=== PATIENT | male | born 1940 | race Caucasian/White ===

== ENCOUNTER → 2018-03-18 09:00 | Outpatient (CLI) | payer MEDICARE, SELFPAY ==
[2018-03-18 09:52] LABS: Add Manual Diff / Slide Review NO; Basophils Percent Auto 0.7 % (0-2); Eosinophils Percent Auto 1.3 % (2-4); Hemoglobin 15.2 g/dL (13.5-17.5); Lymphocytes Percent Auto 15.4 % (25-40); Mean Corpuscular HGB Conc 34.5 % (30-36); Mean Corpuscular Hemoglobin 32.7 PG (26-34); Monocytes Percent Auto 11.9 % (3-14); Neutrophils Absolute Auto 3000 /uL (3000-5900); Neutrophils Percent Auto 70.7 % (50-75); Platelet Count 203 X10^3/uL (150-400); Red Blood Cell Count 4.64 X10^6/uL (4.5-5.9); Red Cell Distribution Width 13.2 % (11.6-14.8); White Blood Cell Count 4.3 X10^3/uL (4.5-11.0)
[2018-03-18 10:20] LABS: Alanine Aminotransferase 19 IU/L (21-72); Albumin Globulin Ratio 1.5 (1.0-2.8); Alkaline Phosphatase 51 U/L (38-126); Amylase 67 U/L (30-110); Aspartate Aminotransferase 27 IU/L (17-59); BUN Creatinine Ratio 21.1 (6-22); Bilirubin Total 0.8 mg/dL (0.2-1.3); Blood Urea Nitrogen 19 mg/dL (9-20); Calcium 8.9 mg/dL (8.4-10.2); Carbon Dioxide 30 mmol/L (22-32); Chloride 104 mmol/L (98-107); Estimated Glomerular Filt Rate > 60.0 mL/min (>60); Globulin 2.6 g/dL (1.7-4.1); Glucose 95 mg/dL (80-110); HEMOLYSIS < 15 (0-50); Lipase 66 U/L (23-300); Potassium 4.7 mmol/L (3.4-5.1); Sodium 141 mmol/L (137-145); Total Protein 6.6 g/dL (6.3-8.2)
== END ==
PROVIDERS: PCP Family Medicine
DX: R10.13 Epigastric pain (principal)
CPT/HCPCS: 36415; 80053; 82150; 83013; 83690; 85025

== ENCOUNTER 2018-11-03 08:24 | Emergency (ER) | payer MEDICARE, SELFPAY ==
[2018-11-03 08:38] VITALS: BP 126/92; PULSE 86; RESP 16; TEMP 36.6; O2SAT 95
--- NOTE | 2018-11-03 08:43 | ED_ITS ---
HPI - SOB/Dyspnea General Chief Complaint: Shortness of Breath/Dyspnea Stated Complaint: Sick for one week Time Seen by Provider: 11/03/18 08:43 Source: patient Mode of arrival: ambulatory Limitations: no limitations History of Present Illness Patient is a 78-year-old male who was seen in the walk-in clinic a couple days ago was diagnosed with a ?viral infection? he states he was seen for sinus congestion and a cough. He states since then he has been doing [id number] decongestants which has helped his congestion but the mdkl-bnc-[id number] cough medication has not helped any of his symptoms. he states he is just not getting any better. Related Data Home Medications Medication Instructions Recorded Confirmed ascorbic acid (vitamin C) PO 03/18/18 10/30/18 cyanocobalamin (vitamin B-12) PO 03/18/18 10/30/18 aspirin 81 mg tablet,delayed 81 mg PO DAILY 06/18/18 11/03/18 release Previous Rx's Medication Instructions Recorded omeprazole 20 mg tablet,delayed 20 mg PO DAILY #90 tab 06/18/18 release azithromycin See Rx Instructions .ROUTE 11/03/18 .COMPLEX #6 tab benzonatate [Tessalon Perles] 100 mg PO BID-TID PRN #20 cap 11/03/18 Allergies Allergy/AdvReac Type Severity Reaction Status Date / Time No Known Drug Allergies Allergy Verified 11/03/18 08:49 Review of Systems Constitutional Denies fever(s) and Denies headache(s) ENT Ears, Nose, Mouth, and Throat: Denies headache(s) Cardiovascular Denies chest pain, Denies dyspnea and Denies dyspnea on exertion Respiratory Denies change in phlegm color, Reports cough, Denies hemoptysis, Reports pain with cough, Denies dyspnea and Denies dyspnea on exertion Gastrointestinal Gastrointestinal: Denies abdominal pain, Denies nausea and Denies vomiting Musculoskeletal Denies myalgias and Denies arthralgias Integumentary/Breasts Denies rash Neurologic Denies headache(s) Hematologic/Lymphatic Denies easy bleeding and Denies easy bruising [facility] Medical History (Updated 11/03/18 @ 09:09 by Cisco Paz DO) Gastroesophageal reflux disease (Acute) Social History Smoking Status: Never smoker Social History Smoking Status: Never smoker Exam Initial Vital Signs Initial Vital Signs: Vital Signs Temperature 97.9 F 11/03/18 08:38 Pulse Rate 86 11/03/18 08:38 Respiratory Rate 16 11/03/18 08:38 Blood Pressure 126/92 H 11/03/18 08:38 Pulse Oximetry 95 11/03/18 08:38 Const General: cooperative, comfortable, well developed, well groomed and No acute distress Orientation: alert, awake and oriented x3 HENMT Head: normal to inspection and normocephalic Ears: TM's normal bilaterally Mouth: oral mucosae normal Throat: posterior oropharynx normal Resp Effort & Inspection: normal respiratory effort Auscultation: rhonchi Cardio Rate: regular rate Skin Lesions: no lesions Rashes: no rashes Neuro General: alert, awake and oriented x3 Cognition: normal cognition Speech: speech normal Extrem General: normal to inspection and capillary refill normal Psych Appearance: grossly normal and well kempt Course Orders Ordered: ED Orders 11/03/18 08:44 XR chest 2V Stat Vital Signs - 8 hr 11/03/18 08:38 Temperature 97.9 F Pulse Rate 86 Respiratory Rate 16 Blood Pressure 126/92 H Pulse Oximetry 95 MDM - SOB/Dyspnea Imaging Data Chest x-ray: Radiologist's impression: PROCEDURE: XR CHEST 2V INDICATIONS: Cough for 1 week with coarse breath sounds TECHNIQUE: 2 views of the chest were acquired. COMPARISON: None. FINDINGS: Surgical changes and devices: None. Lungs and pleura: Lungs are abnormal with mild patchy pneumonitis pattern consistent with bilateral mild pneumonia. No pleural effusions or pneumothorax. Mediastinum: Mediastinal contours are normal except for presence of a moderate- sized hilar hernia behind heart containing gas. Heart size is normal. Bones and chest wall: No suspicious bony abnormalities. Soft tissues appear unremarkable. IMPRESSION: Mild patchy pneumonia bilaterally, no effusion found. Moderate- sized hiatal hernia behind the heart. Followup chest plain films are recommended to confirm resolution of the pneumonia pattern after symptoms have improved. Dictated by: William Coronado M.D. on 11/03/2018 at 8:58 Approved by: William Coronado M.D. on 11/03/2018 at 9:00 [facility] Narrative Medical decision making narrative: Chest x-ray shows pneumonia. Patient is not hypoxic, not tachypneic, not tachycardic, not febrile, he does have coarse tanya th sounds bilateral will treat with antibiotics. Will also send home with a prescription for Tessalon Perles. Patient was told that his cough may persist afterwards. He was instructed to follow up with his primary doctor. We also discussed decongestants. He was given return precautions. He expressed understanding and agreement with plan. Discharge Plan Departure Patient Disposition: Home Clinical Impression: Pneumonia Qualifiers: Pneumonia type: due to unspecified organism Laterality: unspecified laterality Lung location: unspecified part of lung Qualified Code(s): J18.9 - Pneumonia, unspecified organism Instructions: DI for Pneumonia -- Adult Activity Restrictions/Additional Instructions: I do recommend that you start on a decongestant such as Claritin or Rosemary or Zyrtec. He can buy these [id number]. You can buy the generic version of these medications. Start taking the antibiotics as directed. Call your primary care doctor for a follow-up. Return to the emergency department for any new or worsening symptoms Prescriptions: New azithromycin 250 mg tablet See Rx Instructions .ROUTE .COMPLEX Qty: 6 RF: 0 benzonatate [Tessalon Perles] 100 mg capsule 100 mg PO BID-TID PRN (Reason: cough) Qty: 20 RF: 0 No Action ascorbic acid (vitamin C) PO RF: 0 cyanocobalamin (vitamin B-12) PO RF: 0 aspirin [Adult Aspirin Regimen] 81 mg tablet,delayed release (DR/EC) 81 mg PO DAILY RF: 0 omeprazole 20 mg tablet,delayed release (DR/EC) 20 mg PO DAILY Qty: 90 RF: 0 Referrals: Cinda Garcia DO [Primary Care Provider] -
[2018-11-03 09:14] VITALS: BP 115/70; PULSE 83; RESP 20; O2SAT 92
== END 2018-11-03 09:15 | disposition home or self-care (01) ==
PROVIDERS: Emergency Provider Emergency Medicine; PCP Family Medicine
DX: J18.9 Pneumonia, unspecified organism (principal)
CPT/HCPCS: 71046; 99282; 99283

== ENCOUNTER → 2018-12-03 11:27 | Outpatient (CLI) | payer MEDICARE, SELFPAY ==
--- NOTE | 2018-12-03 | DI.RAD.S_ITS ---
PROCEDURE: XR CHEST 2V INDICATIONS: PNEUMONIA/COUGH TECHNIQUE: 2 views of the chest were acquired. COMPARISON: , CR, XR CHEST 2V, 11/03/2018, 8:47. FINDINGS: Surgical changes and devices: None. Lungs and pleura: Improved aeration of the right lung base since 11/03/18. No pleural effusions or pneumothorax. Mediastinum: Mediastinal contours are normal. Heart size is normal. Incidental hiatal hernia as before Bones and chest wall: No suspicious bony abnormalities. Soft tissues appear unremarkable. IMPRESSION: Improved aeration of the right lung base since the prior study, in keeping with resolved pneumonia. No new consolidation. Dictated by: Zeyad Greenberg M.D. on 12/03/2018 at 12:44 Approved by: Zeyad Greenberg M.D. on 12/03/2018 at 12:48
== END ==
PROVIDERS: PCP Family Medicine; Visit Provider Family Medicine
DX: J18.9 Pneumonia, unspecified organism (principal); R05 Cough
CPT/HCPCS: 71046

== ENCOUNTER 2020-06-17 00:29 | Observation (INO) | payer MEDICARE, SELFPAY ==
[2020-06-17] VITALS (30 sets, daily range): BP systolic 102–155; BP diastolic 63–87; PULSE 74–88; RESP 13–22; TEMP 36.6–37; O2SAT 93–99; BMI 23.0
--- NOTE | 2020-06-17 00:32 | DI.RAD.S_ITS ---
PROCEDURE: XR CHEST 1V INDICATIONS: chest pain TECHNIQUE: One view of the chest was acquired. COMPARISON: [facility], CR, XR CHEST 2V, 12/03/2018, 11:40. FINDINGS: Surgical changes and devices: None. Lungs and pleura: Lungs are clear. No pleural effusions or pneumothorax. Mediastinum: Mediastinal contours appear normal. Heart size is normal. Retrocardiac hiatal hernia. Bones and chest wall: No suspicious bony lesions. Overlying soft tissues appear unremarkable. IMPRESSION: No acute cardiopulmonary disease process. Dictated by: Virgen Lucero MD, PhD on 06/17/2020 at 9:20 Approved by: Virgen Lucero MD, PhD on 06/17/2020 at 9:20
[2020-06-17 00:46] LABS: Add Manual Diff / Slide Review NO; Basophils Absolute Auto 0 /uL (0-100); Basophils Percent Auto 0.9 % (0-2); Eosinophils Absolute Auto 100 /uL (0-450); Eosinophils Percent Auto 2.7 % (2-4); Hematocrit 43.9 % (41-53); Hemoglobin 14.9 g/dL (13.5-17.5); Lymphocytes Absolute Auto 1100 /uL (1100-4500); Lymphocytes Percent Auto 22.7 % (25-40); Mean Corpuscular HGB Conc 33.8 % (30-36); Mean Corpuscular Hemoglobin 32.5 PG (26-34); Mean Corpuscular Volume 96.1 fL (80-100); Monocytes Absolute Auto 700 /uL (0-900); Monocytes Percent Auto 14.8 % (3-14); Neutrophils Absolute Auto 2800 /uL (1500-7000); Neutrophils Percent Auto 58.9 % (50-75); Platelet Count 197 X10^3/uL (150-400); Red Blood Cell Count 4.57 X10^6/uL (4.5-5.9); Red Cell Distribution Width 13.3 % (11.6-14.8); White Blood Cell Count 4.8 X10^3/uL (4.5-11.0)
[2020-06-17 00:57] LABS: Alanine Aminotransferase 20 IU/L (<50); Albumin Globulin Ratio 1.3 (1.0-2.8); Alkaline Phosphatase 54 U/L (38-126); Aspartate Aminotransferase 31 IU/L (17-59); BUN Creatinine Ratio 21.7 (6-22); Bilirubin Total 0.6 mg/dL (0.2-1.3); Blood Urea Nitrogen 18 mg/dL (9-20); Calcium 8.9 mg/dL (8.4-10.2); Carbon Dioxide 31 mmol/L (22-32); Chloride 107 mmol/L (98-107); Creatine Kinase 85 U/L (55-170); Estimated Glomerular Filt Rate > 60.0 mL/min (>60); Glucose 102 mg/dL (80-110); HEMOLYSIS < 15 (0-50); Lipase 89 U/L (23-300); PTT Partial Thromboplastin Tim 33 SECONDS (26.4-36.2); Potassium 3.6 mmol/L (3.4-5.1); Sodium 142 mmol/L (137-145)
[2020-06-17 01:08] LABS: Troponin I < 0.012 ng/mL (0.01-0.034)
--- NOTE | 2020-06-17 01:11 | ED.CHESTPAIN ---
HPI - Chest Pain General Chief Complaint: Chest Pain Stated Complaint: chest pain Time Seen by Provider: 06/17/20 00:30 Source: patient Mode of arrival: Ambulatory Limitations: no limitations History of Present Illness HPI narrative: 80-year-old male never smoker with a questionable history of a prior DVT, pulmonary embolism and warfarin use and GERD presents with a chief complaint of anterior chest pressure with radiation into his jaw that started while at rest at midnight. By his arrival the pressure and heaviness as well as radiation to his jaw had largely improved, however he now states that there is still some lingering discomfort just left of his sternum the seems to be worse with a deep breath. He denies associated symptoms such as dizziness, weakness or lightheadedness. He denies shortness of breath nor nausea or vomiting. He denies unexplained diaphoresis. He denies recent travel or injury. He states that he is very active and works out nearly every day and denies any exercise intolerance or fatigue. He denies any exertional component to his symptoms today. MD complaint: chest pain Onset (ago): hour(s) Duration: improved Onset: during rest Pain location: substernal and left chest Severity: moderate Quality: aching and heaviness Pain radiation: jaw/teeth Exacerbating factors: inspiration Treatments prior to arrival chest pain: none Related Data Home Medications Medication Instructions Recorded Confirmed ascorbic acid (vitamin C) 1,000 mg PO QAM 03/18/18 06/17/20 aspirin 81 mg tablet,delayed 81 mg PO DAILY 06/18/18 06/17/20 release Probiotic 1 caplet PO QAM 06/17/20 06/17/20 astaxanthin 12 mg PO QAM 06/17/20 06/17/20 omega [id number]-qnf-fish oil [Fish Oil] 1 cap PO DAILY 06/17/20 06/17/20 Allergies Allergy/AdvReac Type Severity Reaction Status Date / Time No Known Drug Allergies Allergy Verified 11/07/18 15:31 Review of Systems Constitutional Constitutional: Denies chills, Denies fatigue, Denies fever(s), Denies frequent falls, Denies lethargy and Denies weakness Eyes Eyes: Denies change in vision, Denies eye discharge, Denies irritation and Denies loss of vision ENT Ears, Nose, Mouth, and Throat: Denies change in voice, Denies dizziness, Denies neck pain, Denies sore throat and Denies throat swelling Cardiovascular Cardiovascular: Reports chest pain, Denies irregular heart rhythm, Denies lightheadedness, Denies palpitations, Denies dyspnea, Denies dyspnea on exertion and Denies orthopnea Respiratory Respiratory: Denies cough, Denies dyspnea, Denies dyspnea on exertion and Denies wheezing Gastrointestinal Gastrointestinal: Denies abdominal pain, Denies change in bowel habits, Denies diarrhea, Denies nausea and Denies vomiting Musculoskeletal Musculoskeletal: Denies neck pain and Denies numbness Integumentary/Breasts Skin/Breast: Denies pruritus, Denies erythema, Denies rash and Denies wounds Neurologic Neurologic: Denies behavioral changes, Denies confusion, Denies dizziness, Denies frequent falls, Denies loss of vision, Denies numbness and Denies weakness Psychiatric Psychiatric: Denies anxiety, Denies behavioral changes, Denies confusion, Denies depression, Denies homicidal ideation and Denies suicidal ideation Endocrine Endocrine: Denies fatigue, Denies flushing and Denies palpitations Hematologic/Lymphatic Hematologic/Lymphatic: Denies easy bruising Allergic/Immunologic Allergic/Immunologic: Denies urticaria, Denies throat swelling and Denies wheezing Patient History Medical History (Updated 06/17/20 @ 08:26 by Marcia Jc RN) Gastroesophageal reflux disease Ortiz's neuroma of both feet Social History household members: none Smoking Status: Never smoker alcohol intake: current Smoking Status: Never smoker alcohol intake frequency: a few times a week Substance Use Type: does not use Exam Narrative Exam Narrative: GENERAL: [80] year old patient appears stated age. Well-nourished, well-developed patient, in mild distress. HEAD: Atraumatic. Normocephalic. EYES: Pupils equal round and reactive. Extraocular motions intact. No scleral icterus. No injection or drainage. ENT: Nose without bleeding, purulent drainage. Throat without erythema, tonsillar hypertrophy or exudate. Airway patent. NECK: Trachea midline. Non tender CARDIOVASCULAR: Regular rate and rhythm without murmurs, gallops, or rubs. RESPIRATORY: Clear to auscultation. Breath sounds equal bilaterally. No wheezes, rales, or rhonchi. GASTROINTESTINAL: Abdomen soft, non-tender, nondistended. EXTREMITIES: No edema or joint tenderness. BACK: Nontender without deformity or crepitance. No flank tenderness. NEURO: AOx3. SKIN: No rash or erythema of visible areas Initial Vital Signs Initial Vital Signs: Vital Signs Temperature 98.6 F 06/17/20 00:39 Pulse Rate 86 06/17/20 00:39 Respiratory Rate 17 06/17/20 00:39 Blood Pressure 155/87 H 06/17/20 00:39 Pulse Oximetry 99 06/17/20 00:39 Scores HEART Score Heart Score history: Highly Suspicious Heart Score EKG: Normal Heart Score Age: > or = 65 years old Heart Score risk factors: No known risk factors Heart Score troponin: < or = to normal limit Heart Score Total: 4 Course Orders Ordered: Acetaminophen (Acetaminophen 325 Mg Tablet) 650 mg PO Q6HR PRN PRN Reason: Fever/Mild Pain (1-3) Naloxone HCl (Naloxone 0.4 Mg/Ml Vial) 0.2 mg IV Q2MIN PRN PRN Reason: Opiate Reversal Discontinued Medications Aspirin (Aspirin 81 Mg Chew Tab) 324 mg PO NOW ONE Stop: 06/17/20 01:43 Last Admin: 06/17/20 01:49 Dose: 324 mg Documented by: SONIDO Nitroglycerin (Nitroglycerin 0.4 Mg Sl Tab) 0.4 mg SL [id number] PRN PRN Reason: Chest Pain Last Admin: 06/17/20 01:49 Dose: 0.4 mg Documented by: SONIDO Reevaluation(s) Reevaluation #1: discomfort completely resolved after 0.4mg SL Consultations Consultation #1: discussed with banquet server on call cardio. Strong recommendation to admit for stress test and echo here at [facility] Consultation #2: Dr. Oviedo happy to accept on behalf of Estefani, understands that we are currently boarding Vital Signs Vital signs: Vital Signs - 8 hr 06/17/20 00:39 06/17/20 00:40 06/17/20 01:00 Temperature 98.6 F Pulse Rate 86 85 77 Respiratory Rate 17 19 13 Blood Pressure 155/87 H Pulse Oximetry 99 99 97 06/17/20 01:30 06/17/20 01:49 06/17/20 01:51 Temperature Pulse Rate 82 78 Respiratory Rate 22 Blood Pressure 131/76 131/76 Pulse Oximetry 96 98 06/17/20 02:08 06/17/20 02:09 06/17/20 02:15 Temperature Pulse Rate 88 82 77 Respiratory Rate 21 16 13 Blood Pressure 110/69 106/68 Pulse Oximetry 94 95 97 06/17/20 02:30 06/17/20 02:45 06/17/20 03:00 Temperature Pulse Rate 76 79 74 Respiratory Rate 13 18 Blood Pressure 102/63 104/67 112/69 Pulse Oximetry 95 93 95 06/17/20 03:15 06/17/20 03:30 06/17/20 03:45 Temperature Pulse Rate 84 76 79 Respiratory Rate 14 15 Blood Pressure 127/73 114/75 117/76 Pulse Oximetry 95 95 95 06/17/20 04:00 06/17/20 04:15 06/17/20 04:30 Temperature Pulse Rate 79 78 79 Respiratory Rate 16 16 14 Blood Pressure 115/74 113/72 126/79 Pulse Oximetry 95 95 95 06/17/20 04:45 06/17/20 05:00 06/17/20 05:15 Temperature Pulse Rate 77 78 79 Respiratory Rate 17 18 18 Blood Pressure 130/69 130/74 121/77 Pulse Oximetry 94 94 94 06/17/20 05:30 Temperature Pulse Rate 78 Respiratory Rate 17 Blood Pressure 120/63 Pulse Oximetry 93 MDM - Chest Pain Lab Data Result diagrams: 06/17/20 00:39 06/17/20 00:39 Labs: Lab Results 06/17/20 06/17/20 06/17/20 Range/Units 00:39 00:39 00:39 WBC 4.8 (4.5-11.0) X10^3/uL RBC 4.57 (4.5-5.9) X10^6/uL Hgb 14.9 (13.5-17.5) g/dL Hct 43.9 (41-53) % MCV 96.1 (80-100) fL MCH 32.5 (26-34) PG MCHC 33.8 (30-36) % RDW 13.3 (11.6-14.8) % Plt Count 197 (150-400) X10^3/uL Neut % (Auto) 58.9 (50-75) % Lymph % (Auto) 22.7 L (25-40) % [place] % (Auto) 14.8 H (3-14) % Eos % (Auto) 2.7 (2-4) % Baso % (Auto) 0.9 (0-2) % Neut # (Auto) 2800 (3051-3920) /uL Lymph # (Auto) 1100 (0048-3495) /uL [place] # (Auto) 700 (0-900) /uL Eos # (Auto) 100 (0-450) /uL Baso # (Auto) 0 (0-100) /uL PT 11.0 (10.1-12.7) SECONDS INR 1.0 (0.9-1.3) APTT 33 (26.4-36.2) SECONDS D-Dimer (<230) ng/mL Sodium 142 (137-145) mmol/L Potassium 3.6 (3.4-5.1) mmol/L Chloride 107 (98-107) mmol/L Carbon Dioxide 31 (22-32) mmol/L BUN 18 (9-20) mg/dL Creatinine 0.83 (0.66-1.25) mg/dL Estimated GFR > 60.0 (>60) mL/min BUN/Creatinine Ratio 21.7 (6-22) Glucose 102 (80-110) mg/dL Calcium 8.9 (8.4-10.2) mg/dL Total Bilirubin 0.6 (0.2-1.3) mg/dL AST 31 (17-59) IU/L ALT 20 (<50) IU/L Alkaline Phosphatase 54 (38-126) U/L Total Creatine Kinase 85 (55-170) U/L CK-MB (CK-2) TNP CK-MB (CK-2) Rel Index TNP Troponin I < 0.012 (0.01-0.034) ng/mL Total Protein 7.0 (6.3-8.2) g/dL Albumin 4.0 (3.5-5.0) g/dL Globulin 3.0 (1.7-4.1) g/dL Albumin/Globulin Ratio 1.3 (1.0-2.8) Lipase 89 (23-300) U/L COVID-19 PCR (Negative) 06/17/20 06/17/20 06/17/20 Range/Units 00:39 02:44 07:24 WBC (4.5-11.0) X10^3/uL RBC (4.5-5.9) X10^6/uL Hgb (13.5-17.5) g/dL Hct (41-53) % MCV (80-100) fL MCH (26-34) PG MCHC (30-36) % RDW (11.6-14.8) % Plt Count (150-400) X10^3/uL Neut % (Auto) (50-75) % Lymph % (Auto) (25-40) % [place] % (Auto) (3-14) % Eos % (Auto) (2-4) % Baso % (Auto) (0-2) % Neut # (Auto) (8976-0380) /uL Lymph # (Auto) (4998-2242) /uL [place] # (Auto) (0-900) /uL Eos # (Auto) (0-450) /uL Baso # (Auto) (0-100) /uL PT (10.1-12.7) SECONDS INR (0.9-1.3) APTT (26.4-36.2) SECONDS D-Dimer 248 H (<230) ng/mL Sodium (137-145) mmol/L Potassium (3.4-5.1) mmol/L Chloride (98-107) mmol/L Carbon Dioxide (22-32) mmol/L BUN (9-20) mg/dL Creatinine (0.66-1.25) mg/dL Estimated GFR (>60) mL/min BUN/Creatinine Ratio (6-22) Glucose (80-110) mg/dL Calcium (8.4-10.2) mg/dL Total Bilirubin (0.2-1.3) mg/dL AST (17-59) IU/L ALT (<50) IU/L Alkaline Phosphatase (38-126) U/L Total Creatine Kinase (55-170) U/L CK-MB (CK-2) CK-MB (CK-2) Rel Index Troponin I < 0.012 (0.01-0.034) ng/mL Total Protein (6.3-8.2) g/dL Albumin (3.5-5.0) g/dL Globulin (1.7-4.1) g/dL Albumin/Globulin Ratio (1.0-2.8) Lipase (23-300) U/L COVID-19 PCR Negative (Negative) Imaging Data CT scan - chest: Radiologist's Impression: No PE ECG Data Interpretation: EKG is normal sinus rhythm rate [ 76] and free of any signs of ischemia or ectopy. No ST segmental elevation or depression. No T wave inversions. IN 214, 1st degree block REpeat EKG unchanged. Discharge Plan Departure Patient Disposition: Admitted as Observation Clinical Impression: Bilateral inguinal hernia without obstruction or gangrene Chest pain Qualifiers: Chest pain type: unspecified Qualified Code(s): R07.9 - Chest pain, unspecified Admit Date/Time: 06/17/20 07:24 Admit Provider: Estrellita Oviedo
[2020-06-17 01:16] LABS: D Dimer 248 ng/mL (<230)
--- NOTE | 2020-06-17 01:42 | DI.CT.S_ITS ---
PROCEDURE: CT ANGIO CHEST PE PROTOCOL INDICATIONS: chest pain, pleuritic, history of PE TECHNIQUE: After the administration of intravenous contrast, 2 mm thick sections acquired from the pulmonary apices to the posterior costophrenic angles. 3-dimensional maximum intensity projection (MIP) coronal and sagittal reformats were then acquired through the thorax. For radiation dose reduction, the following was used: automated exposure control, adjustment of mA and/or kV according to patient size. COMPARISON: None. FINDINGS: Image quality: Excellent. Pulmonary arteries: Pulmonary arteries are normal in size, and demonstrate no intraluminal filling defects to suggest central pulmonary embolism. Scattered subsegmental atelectasis and/or scarring. No focal consolidation. No pleural effusions or pneumothorax. Airway thickening in keeping with nonspecific bronchitis and/or reactive airways disease. Mediastinum: Heart size is normal, without pericardial effusion. Coronary artery calcifications are present. No mediastinal or hilar adenopathy. Thoracic aorta is normal in caliber and enhancement. Incidentally noted moderate hiatal hernia. No suspicious bony lesions. Ribs and thoracic spine appear intact throughout. Thyroid gland negative . No axillary or supraclavicular adenopathy. Subcentimeter hepatic foci are statistically cysts or hemangiomas, although technically too small to characterize accurately and therefore nonspecific. IMPRESSION: No evidence of pulmonary embolism. No aortic dissection identified. Scattered scarring/atelectasis. No acute consolidation Findings concordant with the preliminary study interpretation provided at the time of the exam. Dictated by: Zeyad Greenberg M.D. on 06/17/2020 at 7:50 Approved by: Zeyad Greenberg M.D. on 06/17/2020 at 8:20
[2020-06-17] MEDS: ASPIRIN 81 MG CHEW TAB 324 MG PO (01:49)
[2020-06-17] MEDS: NITROGLYCERIN 0.4 MG SL TAB SL (01:49)
--- NOTE | 2020-06-17 02:11 | PC.NURSE ---
Pt states that his pain is between a 1/10 and 0/10 after the nitro. SBP dropped 20pts after first dose. Will hold additional doses of Nitro unless CP returns.
[2020-06-17 03:19] LABS: Troponin I < 0.012 ng/mL (0.01-0.034)
[2020-06-17 07:56] LABS: COVID19 -Nasal RAPID Negative (Negative)
--- NOTE | 2020-06-17 09:30 | PC.NURSE ---
Addendum entered by Cely Andersen R.N. 06/17/20 15:03: dr. perez responded, she will be up to see patient as soon as she is done in clinic. Addendum entered by Cely Andersen R.N. 06/17/20 14:23: left msg w/ spa receptionist at dr. perez's office. patient back from stress test. eager to dc home. Addendum entered by Cely Andersen R.N. 06/17/20 13:29: LATE ENTRY; DR PEREZ HAD CALLED BACK PROMPTLY, HAD ALREADY ORDERED REPEAT TROPONIN AND ORDERED CARDIAC STRESS TEST. DR. PEREZ NOTIFIED BY SCREENER PERFUMER THAT STRESS TEST SCHEDULED FOR 1230. SHE STATES SHE WILL SEE PATIENT AFTER. PATIENT OF THE UNIT AT 1235 FOR SAME. Addendum entered by Cely Andersen R.N. 06/17/20 10:29: left msg at dr. perez's office to clarify if any other orders needed, such as repeat troponin. patient eager to know poc. Original Note: PT FULLY ADMITTED TO ROOM 205 FOLLOWING MOST OF NOC SHIFT IN ED- HIS CHEST PAIN RESOLVED APPROX 0200 AND HAS NOT RETURNED - TROP - X2 AND SR WITH PVC'S PER TELE- NO NOTED EDEMA. HE HAS NO DIZZINESS UPON STANDING TO BRUSH HIS TEETH AT BEDSIDE
[2020-06-17 11:28] LABS: Creatine Kinase 57 U/L (55-170)
[2020-06-17 11:40] LABS: Troponin I < 0.012 ng/mL (0.01-0.034)
--- NOTE | 2020-06-17 13:18 | PM.TREADMILL ---
Cardiac Stress Test Report Referral & Results Date Patient Seen: 06/17/20 Time Patient Seen: 13:18 Requesting provider: Estrellita Oviedo Indication: chest pain Rest ECG: sinus rhythm with PACs Procedure Note: Standard noe protocol, 4:10, 5.1 mets Slightly reduced capacity, TARA +15% Normal hemodynamic response to exercise No chest pain or anginal symptoms No significant ST changes, occasional PACs Impression: normal exercise stress test Please note: Actual ECG tracings can be found in the PACS system.
--- NOTE | 2020-06-17 18:14 | PM.HP.1 ---
History of Present Illness History of Present Illness Date Patient Seen: 06/17/20 Time Patient Seen: 18:15 Date of Onset of Symptoms: 06/17/20 Chief complaint: chest pain Narrative: This is a very healthy 80-year-old male who is very active and runs 30 minutes every day and is on no prescribed medication who presents to emergency department with sudden onset prior to presentation of anterior chest pain upper sternum very slightly radiating to the jaw. He was given baby aspirin and by the time that they gave him nitroglycerin his pain had completely subsided. He had approximately 2 hours of pain. From the time that the pain started to when he went in to the emergency room. He had no associated symptoms. He did not have any shortness of breath. He did not have any diaphoresis. He did not have any nausea or vomiting. He does not have any pain or decreased exercise tolerance PND orthopnea. He otherwise is in his usual healthy state. At the time my evaluation he denies any complaints Review of systems: Patient with a history of reflux any nose with this is and he has not had any reflux symptoms. He is not having abdominal pain. He has not had any change in his bowel or bladder. He has not had any urine symptoms. He has not had a fever. He has not had a rash. He has not had a cough or shortness of breath. He does exercise regularly and he does light weights. He did do light weights on the morning that his symptoms Started which is not unusual for him but he did do some weights working with his pectoralis muscles. He denies any change in his stools. He denies any blood in his stools Past medical history: 1. Hyperlipidemia 2. History of malignant melanoma 3. Ortiz's neuroma 4. Previous history of pneumonia, September of 2018 5. Previous PN 2012 6. 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 He drinks alcohol socially Pneumovax 05/20/2020 Flu vaccine 10 20 Tdap 02/09/2019 Patient History Medical History Gastroesophageal reflux disease Ortiz's neuroma of both feet Family & Social History Social History: household members none Prior Living Arrangements House Safety & Behavioral: Feels Safe in Current Yes Environment Been Physically Hurt or No Threatened By a Person Suicidal Ideation Description None Suicide Plan Description No Plan Tobacco & Substance use: Smoking Status Never smoker alcohol intake current alcohol intake frequency a few times a week Substance Use Type does not use Meds Home Medications and Allergies Home Medications Medication Instructions Recorded Confirmed Type ascorbic acid (vitamin C) 1,000 mg PO QAM 03/18/18 06/17/20 History aspirin 81 mg tablet,delayed 81 mg PO DAILY 06/18/18 06/17/20 History release Probiotic 1 caplet PO QAM 06/17/20 06/17/20 History astaxanthin 12 mg PO QAM 06/17/20 06/17/20 History omega 2-kas-wgf-fish oil [Fish Oil] 1 cap PO DAILY 06/17/20 06/17/20 History Allergies Allergy/AdvReac Type Severity Reaction Status Date / Time No Known Drug Allergies Allergy Verified 11/07/18 15:31 Review of Systems Review of Systems Narrative: All negative except as documented in HPI ROS: Yes All systems reviewed with the patient and are negative except as otherwise documented Exam Vital Signs (past 8 hours): - 06/17/20 12:30 06/17/20 15:52 Temperature 98.2 F 97.8 F Pulse Rate 81 87 Respiratory Rate 15 16 Blood Pressure 138/81 118/74 Pulse Oximetry 97 97 Oxygen Delivery Method Room Air Narrative Exam Narrative: Afebrile vital signs are stable. Patient alert and oriented no apparent distress. Appears younger than stated age. HEENT unremarkable Neck supple without adenopathy Chest: Clear to auscultation without wheezes rhonchi or crackles Cor: Regular rate and without any murmur No pain with palpation anterior precordium Abdomen: Positive bowel sounds, soft, nontender, nondistended, no hepatosplenomegaly Extremities: No edema pulses intact Skin exam no rashes Neurologic exam nonfocal Objective Labs Result Diagrams: 06/17/20 00:39 06/17/20 00:39 Labs: Laboratory Results - last 24 hr 06/17/20 06/17/20 06/17/20 00:39 00:39 00:39 WBC 4.8 RBC 4.57 Hgb 14.9 Hct 43.9 MCV 96.1 MCH 32.5 MCHC 33.8 RDW 13.3 Plt Count 197 Neut % (Auto) 58.9 Lymph % (Auto) 22.7 L [place] % (Auto) 14.8 H Eos % (Auto) 2.7 Baso % (Auto) 0.9 Neut # (Auto) 2800 Lymph # (Auto) 1100 [place] # (Auto) 700 Eos # (Auto) 100 Baso # (Auto) 0 PT 11.0 INR 1.0 APTT 33 D-Dimer Sodium 142 Potassium 3.6 Chloride 107 Carbon Dioxide 31 BUN 18 Creatinine 0.83 Estimated GFR > 60.0 BUN/Creatinine Ratio 21.7 Glucose 102 Calcium 8.9 Total Bilirubin 0.6 AST 31 ALT 20 Alkaline Phosphatase 54 Total Creatine Kinase 85 CK-MB (CK-2) TNP CK-MB (CK-2) Rel Index TNP Troponin I < 0.012 Total Protein 7.0 Albumin 4.0 Globulin 3.0 Albumin/Globulin Ratio 1.3 Lipase 89 COVID-19 PCR 06/17/20 06/17/20 06/17/20 00:39 02:44 07:24 WBC RBC Hgb Hct MCV MCH MCHC RDW Plt Count Neut % (Auto) Lymph % (Auto) [place] % (Auto) Eos % (Auto) Baso % (Auto) Neut # (Auto) Lymph # (Auto) [place] # (Auto) Eos # (Auto) Baso # (Auto) PT INR APTT D-Dimer 248 H Sodium Potassium Chloride Carbon Dioxide BUN Creatinine Estimated GFR BUN/Creatinine Ratio Glucose Calcium Total Bilirubin AST ALT Alkaline Phosphatase Total Creatine Kinase CK-MB (CK-2) CK-MB (CK-2) Rel Index Troponin I < 0.012 Total Protein Albumin Globulin Albumin/Globulin Ratio Lipase COVID-19 PCR Negative 06/17/20 11:00 WBC RBC Hgb Hct MCV MCH MCHC RDW Plt Count Neut % (Auto) Lymph % (Auto) [place] % (Auto) Eos % (Auto) Baso % (Auto) Neut # (Auto) Lymph # (Auto) [place] # (Auto) Eos # (Auto) Baso # (Auto) PT INR APTT D-Dimer Sodium Potassium Chloride Carbon Dioxide BUN Creatinine Estimated GFR BUN/Creatinine Ratio Glucose Calcium Total Bilirubin AST ALT Alkaline Phosphatase Total Creatine Kinase 57 CK-MB (CK-2) TNP CK-MB (CK-2) Rel Index TNP Troponin I < 0.012 Total Protein Albumin Globulin Albumin/Globulin Ratio Lipase COVID-19 PCR Assessment & Plan Assessment & Plan narrative: 80-year-old male admitted for chest pain Patient has successfully been ruled out for acute myocardial infarction with serial CK and troponins x3 that have been negative. He underwent the exercise portion of a stress Mibi and the exercise portion was good he had good exercise tolerance without symptoms and no ST changes. Cardiology discussed with Dr. Oviedo and they said that there were no abnormalities. They said he did not have to have the resting images but we will verify that on Saturday. He is scheduled for that on Saturday. I suspect that this may have been musculoskeletal. Possibly related to his weightlifting. He will be discharged home in stable condition and will follow-up with me next week. He is on no prescription meds. We reviewed signs symptoms of concern his questions were answered.
--- NOTE | 2020-06-17 18:35 | PM.DS.1 ---
History of Present Illness History of Present Illness Chief complaint: chest pain Narrative: This is a very healthy 80-year-old male who is very active and runs 30 minutes every day and is on no prescribed medication who presents to emergency department with sudden onset prior to presentation of anterior chest pain upper sternum very slightly radiating to the jaw. He was given baby aspirin and by the time that they gave him nitroglycerin his pain had completely subsided. He had approximately 2 hours of pain. From the time that the pain started to when he went in to the emergency room. He had no associated symptoms. He did not have any shortness of breath. He did not have any diaphoresis. He did not have any nausea or vomiting. He does not have any pain or decreased exercise tolerance PND orthopnea. He otherwise is in his usual healthy state. At the time my evaluation he denies any complaints Review of systems: Patient with a history of reflux any nose with this is and he has not had any reflux symptoms. He is not having abdominal pain. He has not had any change in his bowel or bladder. He has not had any urine symptoms. He has not had a fever. He has not had a rash. He has not had a cough or shortness of breath. He does exercise regularly and he does light weights. He did do light weights on the morning that his symptoms Started which is not unusual for him but he did do some weights working with his pectoralis muscles. He denies any change in his stools. He denies any blood in his stools Past medical history: 1. Hyperlipidemia 2. History of malignant melanoma 3. Ortiz's neuroma 4. Previous history of pneumonia, September of 2018 5. Previous PN 2012 6. 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 He drinks alcohol socially Pneumovax 05/20/2020 Flu vaccine 10 20 Tdap 02/09/2019 Discharge Providers Provider Date of admission: 06/17/20 07:24 Discharge Date: 06/17/20 Primary care physician: Vandana Jara MD Discharge provider: Vandana Jara MD Exam Vital Signs (past 8 hours): - 06/17/20 12:30 06/17/20 15:52 Temperature 98.2 F 97.8 F Pulse Rate 81 87 Respiratory Rate 15 16 Blood Pressure 138/81 118/74 Pulse Oximetry 97 97 Oxygen Delivery Method Room Air Objective Labs Result Diagrams: 06/17/20 00:39 06/17/20 00:39 Labs: Laboratory Results - last 24 hr 06/17/20 06/17/20 06/17/20 00:39 00:39 00:39 WBC 4.8 RBC 4.57 Hgb 14.9 Hct 43.9 MCV 96.1 MCH 32.5 MCHC 33.8 RDW 13.3 Plt Count 197 Neut % (Auto) 58.9 Lymph % (Auto) 22.7 L [place] % (Auto) 14.8 H Eos % (Auto) 2.7 Baso % (Auto) 0.9 Neut # (Auto) 2800 Lymph # (Auto) 1100 [place] # (Auto) 700 Eos # (Auto) 100 Baso # (Auto) 0 PT 11.0 INR 1.0 APTT 33 D-Dimer Sodium 142 Potassium 3.6 Chloride 107 Carbon Dioxide 31 BUN 18 Creatinine 0.83 Estimated GFR > 60.0 BUN/Creatinine Ratio 21.7 Glucose 102 Calcium 8.9 Total Bilirubin 0.6 AST 31 ALT 20 Alkaline Phosphatase 54 Total Creatine Kinase 85 CK-MB (CK-2) TNP CK-MB (CK-2) Rel Index TNP Troponin I < 0.012 Total Protein 7.0 Albumin 4.0 Globulin 3.0 Albumin/Globulin Ratio 1.3 Lipase 89 COVID-19 PCR 06/17/20 06/17/20 06/17/20 00:39 02:44 07:24 WBC RBC Hgb Hct MCV MCH MCHC RDW Plt Count Neut % (Auto) Lymph % (Auto) [place] % (Auto) Eos % (Auto) Baso % (Auto) Neut # (Auto) Lymph # (Auto) [place] # (Auto) Eos # (Auto) Baso # (Auto) PT INR APTT D-Dimer 248 H Sodium Potassium Chloride Carbon Dioxide BUN Creatinine Estimated GFR BUN/Creatinine Ratio Glucose Calcium Total Bilirubin AST ALT Alkaline Phosphatase Total Creatine Kinase CK-MB (CK-2) CK-MB (CK-2) Rel Index Troponin I < 0.012 Total Protein Albumin Globulin Albumin/Globulin Ratio Lipase COVID-19 PCR Negative 06/17/20 11:00 WBC RBC Hgb Hct MCV MCH MCHC RDW Plt Count Neut % (Auto) Lymph % (Auto) [place] % (Auto) Eos % (Auto) Baso % (Auto) Neut # (Auto) Lymph # (Auto) [place] # (Auto) Eos # (Auto) Baso # (Auto) PT INR APTT D-Dimer Sodium Potassium Chloride Carbon Dioxide BUN Creatinine Estimated GFR BUN/Creatinine Ratio Glucose Calcium Total Bilirubin AST ALT Alkaline Phosphatase Total Creatine Kinase 57 CK-MB (CK-2) TNP CK-MB (CK-2) Rel Index TNP Troponin I < 0.012 Total Protein Albumin Globulin Albumin/Globulin Ratio Lipase COVID-19 PCR Discharge Assessment & Plan Assessment and Plan Assessment: 80-year-old male admitted for chest pain ruled out for acute myocardial infarction had exercise portion of stress Mibi which was negative. Please see H&P Plan of Treatment: Discharged home on day of admission. Rule out for myocardial infarction. Continue home supplements and baby aspirin and follow-up with me next week. Will discuss with Cardiology early Saturday morning to see if he needs to have his resting images. We will await the final report but verbal discussion was done with Dr. Oviedo stating that he did not need the resting images. Discharge Plan Discharge Plan Patient Disposition: Home Discharge orders & Medications Prescriptions: Continued ascorbic acid (vitamin C) 1,000 mg PO QAM RF: 0 aspirin [Adult Aspirin Regimen] 81 mg tablet,delayed release (DR/EC) 81 mg PO DAILY RF: 0 Probiotic capsule 1 caplet PO QAM RF: 0 astaxanthin capsule 12 mg PO QAM RF: 0 omega 7-azc-rcf-fish oil [Fish Oil] 1,000 mg (120 mg-180 mg) Capsule 1 cap PO DAILY RF: 0 Follow up/Referrals: Vandana Jara MD [Primary Care Provider] - Diet/Activity/Treatments Diet: Diet as Tolerated Activity: as tolerated Discharge Data Primary Care Provider: Vandana Jara Attending Provider: Estrellita Oviedo
--- NOTE | 2020-06-17 18:44 | DI.NM.S_ITS ---
DATE OF SERVICE: 06/17/2020 PROCEDURE PERFORMED: Exercise treadmill stress only myocardial perfusion imaging with gating to assess ejection fraction and regional wall motion. ORDERING PROVIDER: Dr. Estrellita Oviedo. INDICATIONS: The patient is an 80-year-old male admitted with chest discomfort. EXERCISE TREADMILL TESTING: The patient was able to exercise for 4 minutes 10 seconds on a standard Bam protocol suggesting mild-moderately reduced exercise capacity with an TARA of +14%. He had a normal heart rate and blood pressure response, achieving a maximum heart rate of 149, BPM (107% of his predicted maximum). He had no chest discomfort or other anginal symptoms. His resting ECG is normal and there are no significant ST-segment shifts or arrhythmias with exercise. At 3 minutes 1 second of exercise, at a heart rate of 128 BPM, 24.2 millicuries of technetium-99m Myoview was injected and the patient was scanned 15 minutes later using a gated SPECT acquisition protocol. Given normal perfusion images, it was felt that resting images were not needed. FINDINGS: 1. Raw data: There is fairly good myocardial tracer uptake. Lung/heart ratio is normal at 0.24. 2. Quantitated gated SPECT: Post-stress ejection fraction is estimated at 85% without any focal wall motion abnormality and specifically the inferior wall has normal contractility. Left ventricular end-diastolic volume is normal at 87 mL. 3. Myocardial perfusion imaging: Post-stress supine images shows a fairly normal myocardial perfusion pattern with a mild defect in the inferior wall in a pattern that would be consistent with diaphragmatic attenuation, supported by its complete resolution on the prone images, which reveal a completely normal perfusion pattern. On the basis of this, it is felt that resting images were not needed. IMPRESSION: 1. Normal myocardial perfusion study. 2. No evidence of myocardial ischemia or previous myocardial infarction. 3. Normal left ventricular systolic function without focal wall motion abnormality. 4. Mild-moderately reduced exercise capacity without angina or ECG evidence of ischemia. [facility] - JERRY/marques/rubén doc#: [id number]/job#: [id number] dd: 06/17/2020 16:30:00 dt: 06/17/2020 17:45:00 DICTATING MD/COPIES TO: David Gonzalez MD; Estrellita Oviedo MD; Vandana Jara MD COPIES MNE: HARLEY; ;
== END 2020-06-17 18:46 | disposition home or self-care (01) ==
LOC: ED 03:39 → AC 07:25
PROVIDERS: Admitting Provider Student in an Organized Health Care Education/Training Program; Emergency Provider Emergency Medicine; PCP Family Medicine; Visit Provider Student in an Organized Health Care Education/Training Program
DX: R07.89 Other chest pain (principal); K21.9 Gastro-esophageal reflux disease without esophagitis; Z79.01 Long term (current) use of anticoagulants; E78.5 Hyperlipidemia, unspecified; Z85.820 Personal history of malignant melanoma of skin; Z11.59 Encounter for screening for other viral diseases
CPT/HCPCS: 36415; 71045; 71275; 78451; 80053; 82550; 83690; 84484; 85025; 85379; 85610; 85730; 87635; 93005; 93017; 99284; G0378; A9502; Q9967

== ENCOUNTER → 2020-08-31 15:58 | Outpatient (CLI) | payer MEDICARE, SELFPAY ==
[2020-06-17 08:32] VITALS: BMI 23.0
[2020-08-31] MEDS: COVID-19 VACC #1, MRNA(MOD) 100 MCG/0.5 ML VIAL IM (16:02)
== END ==
PROVIDERS: PCP Family Medicine; Visit Provider Internal Medicine
DX: Z23 Encounter for immunization (principal)
CPT/HCPCS: 0011A; 91301

== ENCOUNTER → 2020-09-29 10:36 | Outpatient (CLI) | payer MEDICARE, SELFPAY ==
[2020-06-17 08:32] VITALS: BMI 23.0
[2020-09-29] MEDS: COVID-19 VACC #2, MRNA(MOD) 100 MCG/0.5 ML VIAL IM (10:47)
== END ==
PROVIDERS: PCP Family Medicine; Visit Provider Internal Medicine
DX: Z23 Encounter for immunization (principal)
CPT/HCPCS: 0012A; 91301

== ENCOUNTER 2021-08-17 10:53 | Inpatient (IN) | payer MEDICARE, SELFPAY ==
[2020-06-17 08:32] VITALS: BMI 23.0
[2021-08-17] VITALS (13 sets, daily range): BP systolic 108–142; BP diastolic 70–78; PULSE 69–88; RESP 14–18; TEMP 36.7–37.4; O2SAT 95–99; BMI 23.0
--- NOTE | 2021-08-17 10:59 | ED_ITS ---
HPI - Abdominal Pain General Chief Complaint: Abdominal Pain Stated Complaint: stomach pain no bowel movement Time Seen by Provider: 08/17/21 10:55 History of Present Illness HPI narrative: 81-year-old male nonsmoker with history of malignant melanoma, pneumonia presents to the emergency department a chief complaint of generalized abdominal pain and decreased bowel movements. He states that he had been in his normal state of health until late last evening and symptoms gradually worsened until early this morning. He ate some chicken tortilla soup that he thinks may have been a bit old, he states that it necessarily taste right when he ate it. He complains of generalized abdominal discomfort that has moved around a bit in his abdomen. He denies any obvious provocation or palliation. He denies any radiation. He denies vomiting but has been nauseated in fact tried to vomit. He has been able to have a bowel movement which is abnormal for him, he states he is typically quite regular and goes daily. He denies any prior surgeries on his abdomen. Related Data Home Medications Medication Instructions Recorded Confirmed ascorbic acid (vitamin C) 1,000 mg PO QAM 03/18/18 06/17/20 aspirin 81 mg tablet,delayed 81 mg PO DAILY 06/18/18 06/17/20 release (Adult Aspirin Regimen) Probiotic 1 caplet PO QAM 06/17/20 06/17/20 astaxanthin 12 mg PO QAM 06/17/20 06/17/20 omega 0-pib-phm-fish oil 1,000 mg 1 cap PO DAILY 06/17/20 06/17/20 (120 mg-180 mg) capsule (Fish Oil) Allergies Allergy/AdvReac Type Severity Reaction Status Date / Time No Known Drug Allergies Allergy Verified 11/07/18 15:31 Review of Systems Review of Systems Narrative: GENERAL: Denies chills, fatigue, malaise, fever, sweats. HEENT: Denies sinus pain, ear pain, sore throat, difficulty swallowing, dizziness. RESPIRATORY: Denies dyspnea, cough, wheezing, hemoptysis, sputum. CARDIOVASCULAR: Denies chest pain, palpitations, orthopnea, edema, GASTROINTESTINAL: See HPI : Denies dysuria, frequency, incontinence, hematuria, urinary retention. MUSCULOSKELETAL: denies weakness, joint pain, or bony pain SKIN: Denies rash, skin lesions, or other NEUROLOGIC: Denies weakness, headache, numbness, change in speech, confusion, seizures, incoordination. PSYCHIATRIC: No concerning psychosocial issues. 12 point review of systems is negative except for those stated above Patient History Medical History Gastroesophageal reflux disease Ortiz's neuroma of both feet Social History household members: none Smoking Status: Never smoker alcohol intake: current Smoking Status: Never smoker alcohol intake frequency: a few times a week Substance Use Type: does not use Exam Narrative Exam Narrative: GENERAL: [81 year old patient appears stated age. Well-developed patient, in mild distress. HEAD: Atraumatic. Normocephalic. EYES: Pupils equal round and reactive. Extraocular motions intact. No scleral icterus. No injection or drainage. ENT: Nose without bleeding, purulent drainage. Throat without erythema, ton sillar hypertrophy or exudate. Airway patent. NECK: Trachea midline. Non tender CARDIOVASCULAR: Regular rate and rhythm without murmurs, gallops, or rubs. RESPIRATORY: Clear to auscultation. Breath sounds equal bilaterally. No wheezes, rales, or rhonchi. GASTROINTESTINAL: Abdomen soft, non-tender, nondistended. Bowel sounds present in all 4 quadrants EXTREMITIES: No edema or joint tenderness. BACK: Nontender without deformity or crepitance. No flank tenderness. NEURO: AOx3. SKIN: No rash or erythema of visible areas Initial Vital Signs Initial Vital Signs: Vital Signs Temperature 98.1 F 08/17/21 11:05 Pulse Rate 88 08/17/21 11:05 Respiratory Rate 14 08/17/21 11:05 Blood Pressure 142/78 H 08/17/21 11:05 Pulse Oximetry 99 08/17/21 11:05 Course Orders Ordered: ED Orders 08/17/21 11:04 XR acute abdomen series Stat 08/17/21 11:20 Complete Blood Count AUTO DIFF Stat Comprehensive Metabolic Panel Stat Lactate (Lactic Acid) Stat 08/17/21 11:42 COVID19 -Nasal swab/Pre-Proc Stat 08/17/21 13:16 CT abdomen pelvis w con Stat Sodium Chloride (Normal Saline 0.9%) 1,000 mls @ 125 mls/hr IV CONT DESHAWN Last Admin: 08/17/21 11:36 Dose: 125 mls/hr Documented by: ATAYLOR Vital Signs Vital signs: Vital Signs - 8 hr 08/17/21 11:05 08/17/21 11:35 08/17/21 11:36 Temperature 98.1 F Pulse Rate 88 76 73 Respiratory Rate 14 18 Blood Pressure 142/78 H 130/77 Pulse Oximetry 99 96 96 08/17/21 12:00 08/17/21 12:30 08/17/21 13:00 Temperature Pulse Rate 73 75 77 Respiratory Rate Blood Pressure Pulse Oximetry 96 97 96 08/17/21 13:30 08/17/21 13:57 08/17/21 14:00 Temperature Pulse Rate 73 76 76 Respiratory Rate Blood Pressure 108/70 117/76 Pulse Oximetry 96 97 97 08/17/21 14:30 Temperature Pulse Rate 74 Respiratory Rate Blood Pressure 125/77 Pulse Oximetry 98 MDM - Abdominal Pain Lab Data Result diagrams: 08/17/21 11:20 08/17/21 11:20 Labs: Lab Results 08/17/21 08/17/21 08/17/21 Range/Units 11:20 11:20 11:20 WBC 7.4 (4.5-11.0) X10^3/uL RBC 4.68 (4.5-5.9) X10^6/uL Hgb 15.0 (13.5-17.5) g/dL Hct 44.6 (41-53) % MCV 95.3 (80-100) fL MCH 32.1 (26-34) PG MCHC 33.7 (30-36) % RDW 13.4 (11.6-14.8) % Plt Count 196 (150-400) X10^3/uL Neut % (Auto) 90.7 H (50-75) % Lymph % (Auto) 5.0 L (25-40) % [place] % (Auto) 4.1 (3-14) % Eos % (Auto) 0.0 L (2-4) % Baso % (Auto) 0.2 (0-2) % Neut # (Auto) 6700 (7227-6110) /uL Lymph # (Auto) 400 L (0640-4944) /uL [place] # (Auto) 300 (0-900) /uL Eos # (Auto) 0 (0-450) /uL Baso # (Auto) 0 (0-100) /uL Sodium 138 (137-145) mmol/L Potassium 4.5 (3.4-5.1) mmol/L Chloride 104 (98-107) mmol/L Carbon Dioxide 28 (22-32) mmol/L BUN 21 H (9-20) mg/dL Creatinine 0.89 (0.66-1.25) mg/dL Estimated GFR > 60.0 (>60) mL/min BUN/Creatinine Ratio 23.6 H (6-22) Glucose 139 H (80-110) mg/dL Lactate 1.3 (0.7-2.1) mmol/L Calcium 9.4 (8.4-10.2) mg/dL Total Bilirubin 1.2 (0.2-1.3) mg/dL AST 39 (17-59) IU/L ALT 28 (<50) IU/L Alkaline Phosphatase 67 (38-126) U/L Total Protein 7.1 (6.3-8.2) g/dL Albumin 4.5 (3.5-5.0) g/dL Globulin 2.6 (1.7-4.1) g/dL Albumin/Globulin Ratio 1.7 (1.0-2.8) SARS-CoV-2 (PCR) (Negative) 08/17/21 Range/Units 11:42 WBC (4.5-11.0) X10^3/uL RBC (4.5-5.9) X10^6/uL Hgb (13.5-17.5) g/dL Hct (41-53) % MCV (80-100) fL MCH (26-34) PG MCHC (30-36) % RDW (11.6-14.8) % Plt Count (150-400) X10^3/uL Neut % (Auto) (50-75) % Lymph % (Auto) (25-40) % [place] % (Auto) (3-14) % Eos % (Auto) (2-4) % Baso % (Auto) (0-2) % Neut # (Auto) (8885-7865) /uL Lymph # (Auto) (9632-8497) /uL [place] # (Auto) (0-900) /uL Eos # (Auto) (0-450) /uL Baso # (Auto) (0-100) /uL Sodium (137-145) mmol/L Potassium (3.4-5.1) mmol/L Chloride (98-107) mmol/L Carbon Dioxide (22-32) mmol/L BUN (9-20) mg/dL Creatinine (0.66-1.25) mg/dL Estimated GFR (>60) mL/min BUN/Creatinine Ratio (6-22) Glucose (80-110) mg/dL Lactate (0.7-2.1) mmol/L Calcium (8.4-10.2) mg/dL Total Bilirubin (0.2-1.3) mg/dL AST (17-59) IU/L ALT (<50) IU/L Alkaline Phosphatase (38-126) U/L Total Protein (6.3-8.2) g/dL Albumin (3.5-5.0) g/dL Globulin (1.7-4.1) g/dL Albumin/Globulin Ratio (1.0-2.8) SARS-CoV-2 (PCR) Negative (Negative) Imaging Data CT scan - abdomen/pelvis: Radiologist's Impression: Launch?[place] [address] CT Scan Report Signed Patient: Trent Woodard MR#: [id number] : 1940 Acct:[id number] Age/Sex: 81 / M Date of Service: 08/17/21 Loc: Accession Number: [id number] ?? Procedure: CT abdomen pelvis w con Ordering Provider: Henry Cruz D.O. PROCEDURE:? CT ABDOMEN PELVIS W CON ? INDICATIONS:? abdominal pain, nausea, SBO ? TECHNIQUE:? After the administration of intravenous contrast, axial sections acquired from the lung bases to the pubic symphysis.? Coronal and sagittal reformats were performed.? For radiation dose reduction, the following was used:? automated exposure control, adjustment of mA and/or kV according to patient size.? ? COMPARISON:? None. ? FINDINGS:? Image quality:? Excellent.? ? Lung bases:? Unremarkable. Heart:? No significant findings. ? ABDOMEN: Liver:? Unremarkable.? ? Gallbladder:? Is within normal limits? ? Biliary ducts:? Unremarkable.? ? Pancreas:? Unremarkable.? ? Spleen:? Unremarkable.? ? Adrenal Glands:? Unremarkable.? ? Kidneys and Ureters:? Unremarkable.? ? ? Stomach and Bowel:? There is a large hiatal hernia.? Stomach is mildly distended.? Multiple moderately dilated loops of small bowel within the central and left abdomen are present.? There is a transition zone between dilated and nondilated small bowel within the central lower pelvis.? Distal small bowel loops are decompressed.? Appendix is not seen.? No evidence of appendicitis.? Colon demonstrates moderate diffuse stool on is nondistended. ? Peritoneum:? Small amount of free fluid within the pelvis..? No free air.? ? Ventral Wall: ? No hernias.? Abdominal Nodes:? No retroperitoneal or mesenteric adenopathy by size criteria.? Vessels:? Aorta and inferior vena cava are normal in size.? ? PELVIS: Pelvic Organs:? Unremarkable.? ? Bladder:? Unremarkable.? ? Pelvic Nodes: No enlarged lymph nodes.? Miscellaneous: No hernias are seen. ? ? ? Bones:? Unremarkable.? IMPRESSION:? 1. Small-bowel obstruction.? Transition zone in the pelvis. 2. Small amount of free fluid within the pelvis. 3. Large hiatal hernia.? ? ? Dictated by: Kaitlyn Browne M.D. on 08/17/2021 at 14:10 ? ? Approved by: Kaitlyn Browne M.D. on 08/17/2021 at 14:12 ? [facility] Narrative Medical decision making narrative: Patient with symptoms since late last night and early this morning, not requiring any significant pain management. He has no elevated white count or lactate to suggest likelihood of ischemia. No NG placed given lack of active vomiting. Patient kept NPO IV fluids. Admitted for ongoing treatment, evaluation and observation. Patient understands and agrees with the plan Discharge Plan Departure Patient Disposition: Admitted As Inpatient Clinical Impression: SBO (small bowel obstruction) Admit Date/Time: 08/17/21 14:41 Admit Provider: Vandana Jara
--- NOTE | 2021-08-17 11:04 | DI.RAD.S_ITS ---
PROCEDURE: XR ACUTE ABDOMEN SERIES INDICATIONS: Abdominal pain, decreased BM TECHNIQUE: One view chest and two views of the abdomen were acquired. COMPARISON: None. FINDINGS: Surgical changes and devices: None. Chest: Lungs are clear. Heart size is normal. No pleural effusions. Moderate hiatal hernia. No pneumoperitoneum. Abdomen: Early or partial small bowel obstruction. Proximal small bowel loops are dilated up to 5 cm. No suspicious calcifications. Visualized solid organ contours appear normal. Bones: No suspicious bony lesions. IMPRESSION: 1. Early or partial small bowel obstruction. 2. Moderate hiatal hernia. Dictated by: Pedro Mathur M.D. on 08/17/2021 at 11:43 Approved by: Pedro Mathur M.D. on 08/17/2021 at 11:44
[2021-08-17 11:30] LABS: Add Manual Diff / Slide Review NO; Basophils Absolute Auto 0 /uL (0-100); Basophils Percent Auto 0.2 % (0-2); Eosinophils Absolute Auto 0 /uL (0-450); Hematocrit 44.6 % (41-53); Lymphocytes Absolute Auto 400 /uL (1100-4500); Mean Corpuscular HGB Conc 33.7 % (30-36); Mean Corpuscular Hemoglobin 32.1 PG (26-34); Mean Corpuscular Volume 95.3 fL (80-100); Monocytes Absolute Auto 300 /uL (0-900); Monocytes Percent Auto 4.1 % (3-14); Neutrophils Absolute Auto 6700 /uL (1500-7000); Neutrophils Percent Auto 90.7 % (50-75); Platelet Count 196 X10^3/uL (150-400); Red Blood Cell Count 4.68 X10^6/uL (4.5-5.9); Red Cell Distribution Width 13.4 % (11.6-14.8); White Blood Cell Count 7.4 X10^3/uL (4.5-11.0)
[2021-08-17] MEDS: SODIUM CHLORIDE 0.9% 1,000 ML 125 ML IV (11:36)
[2021-08-17 11:39] LABS: Alanine Aminotransferase 28 IU/L (<50); Albumin 4.5 g/dL (3.5-5.0); Albumin Globulin Ratio 1.7 (1.0-2.8); Alkaline Phosphatase 67 U/L (38-126); Aspartate Aminotransferase 39 IU/L (17-59); BUN Creatinine Ratio 23.6 (6-22); Bilirubin Total 1.2 mg/dL (0.2-1.3); Blood Urea Nitrogen 21 mg/dL (9-20); Calcium 9.4 mg/dL (8.4-10.2); Carbon Dioxide 28 mmol/L (22-32); Chloride 104 mmol/L (98-107); Estimated Glomerular Filt Rate > 60.0 mL/min (>60); Globulin 2.6 g/dL (1.7-4.1); Glucose 139 mg/dL (80-110); HEMOLYSIS < 15 (0-50); Potassium 4.5 mmol/L (3.4-5.1); Sodium 138 mmol/L (137-145); Total Protein 7.1 g/dL (6.3-8.2)
[2021-08-17 11:40] LABS: Lactate (Lactic Acid) 1.3 mmol/L (0.7-2.1)
[2021-08-17 12:05] LABS: COVID19 -Nasal RAPID Negative (Negative)
--- NOTE | 2021-08-17 13:16 | DI.CT.S_ITS ---
PROCEDURE: CT ABDOMEN PELVIS W CON INDICATIONS: abdominal pain, nausea, SBO TECHNIQUE: After the administration of intravenous contrast, axial sections acquired from the lung bases to the pubic symphysis. Coronal and sagittal reformats were performed. For radiation dose reduction, the following was used: automated exposure control, adjustment of mA and/or kV according to patient size. COMPARISON: None. FINDINGS: Image quality: Excellent. Lung bases: Unremarkable. Heart: No significant findings. ABDOMEN: Liver: Unremarkable. Gallbladder: Is within normal limits Biliary ducts: Unremarkable. Pancreas: Unremarkable. Spleen: Unremarkable. Adrenal Glands: Unremarkable. Kidneys and Ureters: Unremarkable. Stomach and Bowel: There is a large hiatal hernia. Stomach is mildly distended. Multiple moderately dilated loops of small bowel within the central and left abdomen are present. There is a transition zone between dilated and nondilated small bowel within the central lower pelvis. Distal small bowel loops are decompressed. Appendix is not seen. No evidence of appendicitis. Colon demonstrates moderate diffuse stool on is nondistended. Peritoneum: Small amount of free fluid within the pelvis.. No free air. Ventral Wall: No hernias. Abdominal Nodes: No retroperitoneal or mesenteric adenopathy by size criteria. Vessels: Aorta and inferior vena cava are normal in size. PELVIS: Pelvic Organs: Unremarkable. Bladder: Unremarkable. Pelvic Nodes: No enlarged lymph nodes. Miscellaneous: No hernias are seen. Bones: Unremarkable. IMPRESSION: 1. Small-bowel obstruction. Transition zone in the pelvis. 2. Small amount of free fluid within the pelvis. 3. Large hiatal hernia. Dictated by: Kaitlyn Browne M.D. on 08/17/2021 at 14:10 Approved by: Kaitlyn Browne M.D. on 08/17/2021 at 14:12
--- NOTE | 2021-08-17 16:03 | PC.NURSE ---
Addendum entered by Lesly Moss R.N. 08/17/21 18:52: Dr Milan here to see pt/ place orders. Original Note: Pt arrived from ED at 1530 A/O, denies discomfort. VSS Lungs clear, SpO2 98% RA Abdomen slightly tender slight BT noted. HL LAC intact/patent. Pt oriented to room & call system Call light w/in reach, pt calls appropriately for needs. Continue w/plan of care.
--- NOTE | 2021-08-17 18:46 | PM.HP.1 ---
History of Present Illness History of Present Illness Date Patient Seen: 08/17/21 Time Patient Seen: 18:46 Date of Onset of Symptoms: 08/17/21 Chief complaint: stomach pain no bowel movement Narrative: Patient presents to the emergency room the EMS due to abdominal pain. Patient states that he was in his usual state of health and developed sudden onset of bilateral lower quadrant and pelvic abdominal pain. This started about 11 30 or 12:00 p.m. last night. He had prolonged episode of dry heaves with nothing coming out. He then continued to have pain and really had difficulty sleeping until he finally fell asleep about 3:00 a.m. and was able to sleep in about 5 or 6 and awakened and felt better but then the pain progressed. Patient states that he was in his usual state health prior to getting ill. He had a normal bowel movement on 08/16/2019 to felt normal throughout that day. 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 He also had a fairly large quantity of peanuts in their shells. Due to the persistent pain in the morning his friend contacted EMS and they evaluated him and felt he needed to be taken into the ER for further evaluation. In the ER an x-ray and a CT scan confirmed a small-bowel obstruction. He had normal electrolytes normal white blood cell count and no other complaints. He states that he has been in his usual state health. He met with Cardiology last week. He was taken off Plavix because is been a year since he had a coronary artery stent placement. They recommended him taking a full aspirin in discussed other options such as Eliquis and Xarelto but patient does not really want to go back on a blood thinner because of previous bad experience. Past medical history: 1. Coronary artery disease; baltazar involving right coronary artery and status post drug-eluting stent and 1 year of Plavix and recently Plavix was discontinued 2. Paroxysmal atrial fibrillation, not on chronic anticoagulation due to patient's wishes 3. Hypercholesterolemia 4. GERD 5. Previous history of malignant melanoma 6. Ortiz's neuroma 7. Pneumonia 8. Two thousand sixteen he had gastropathy and esophageal ulcer Current medications are atorvastatin 40 mg, metoprolol 25 mg succinate daily, 80 aspirin daily, probiotic past surgical history: Appendectomy Bilateral Inguinal Hernia repair Health related behavior: Never used tobacco 1-2 alcoholic beverages daily Active Patient has had tetanus shot in 2019. He has had COVID vaccine x2 with booster and Pneumovax in 05/20/2020 Family history: sOn had a bowel obstruction Mother htn sister PE at 49 children healthy Social history: Patient is a . He lives alone in a [place] but has good support from friends. He has a daughter and 2 sons Review of systems: Patient denies any headaches. Patient denies any shortness of breath or decreased exercise tolerance Patient denies any PND orthopnea Patient denies any chest pain whatsoever Patient denies any blood in his stools Patient denies any lightheadedness or dizziness Patient denies any change in his stools other than no bowel movement for greater than 24 hours No hematemesis No urinary symptoms No fevers chills or cough No rashes No change in weight Patient History Medical History Gastroesophageal reflux disease Ortiz's neuroma of both feet Family & Social History Social History: household members none Safety & Behavioral: Feels Safe in Current Yes Environment Been Physically Hurt or No Threatened By a Person Tobacco & Substance use: Smoking Status Never smoker alcohol intake current alcohol intake frequency a few times a month Substance Use Type does not use Meds Home Medications and Allergies Home Medications Medication Instructions Recorded Confirmed Type ascorbic acid (vitamin C) 1,000 mg PO QAM 03/18/18 06/17/20 History aspirin 81 mg tablet,delayed 81 mg PO DAILY 06/18/18 06/17/20 History release (Adult Aspirin Regimen) Probiotic 1 caplet PO QAM 06/17/20 06/17/20 History astaxanthin 12 mg PO QAM 06/17/20 06/17/20 History omega 5-eno-hij-fish oil 1,000 mg 1 cap PO DAILY 06/17/20 06/17/20 History (120 mg-180 mg) capsule (Fish Oil) Allergies Allergy/AdvReac Type Severity Reaction Status Date / Time No Known Drug Allergies Allergy Verified 11/07/18 15:31 Review of Systems Review of Systems Narrative: 12 point review of systems is negative other than in HPI Exam Vital Signs (past 8 hours): - 08/17/21 11:05 08/17/21 11:35 08/17/21 11:36 Temperature 98.1 F Pulse Rate 88 76 73 Respiratory Rate 14 18 Blood Pressure 142/78 H 130/77 Pulse Oximetry 99 96 96 08/17/21 12:00 08/17/21 12:30 08/17/21 13:00 Temperature Pulse Rate 73 75 77 Respiratory Rate Blood Pressure Pulse Oximetry 96 97 96 08/17/21 13:30 08/17/21 13:57 08/17/21 14:00 Temperature Pulse Rate 73 76 76 Respiratory Rate Blood Pressure 108/70 117/76 Pulse Oximetry 96 97 97 08/17/21 14:30 08/17/21 15:00 08/17/21 15:30 Temperature 98.0 F Pulse Rate 74 69 75 Respiratory Rate 18 Blood Pressure 125/77 122/74 119/78 Pulse Oximetry 98 96 98 Oxygen Delivery Method Room Air Oxygen Flow Rate 0 Narrative Exam Narrative: Afebrile, vital signs are stable HEENT is unremarkable Neck: Supple without adenopathy thyromegaly, jugular venous distention or bruits Chest: Clear to auscultation without wheezes rhonchi or crackles Cor: Regular rate and rhythm without any ectopy. No murmurs auscultated Abdomen: Positive bowel sounds x4 but tympanitic. Distended. Mild tenderness left lower quadrant. No peritoneal signs. No guarding. No rebound tenderness Extremities: No edema pulses intact Neurologic exam nonfocal Skin no rashes Objective Labs Result Diagrams: 08/17/21 11:20 08/17/21 11:20 Labs: Laboratory Results - last 24 hr 08/17/21 08/17/21 08/17/21 11:20 11:20 11:20 WBC 7.4 RBC 4.68 Hgb 15.0 Hct 44.6 MCV 95.3 MCH 32.1 MCHC 33.7 RDW 13.4 Plt Count 196 Neut % (Auto) 90.7 H Lymph % (Auto) 5.0 L [place] % (Auto) 4.1 Eos % (Auto) 0.0 L Baso % (Auto) 0.2 Neut # (Auto) 6700 Lymph # (Auto) 400 L [place] # (Auto) 300 Eos # (Auto) 0 Baso # (Auto) 0 Sodium 138 Potassium 4.5 Chloride 104 Carbon Dioxide 28 BUN 21 H Creatinine 0.89 Estimated GFR > 60.0 BUN/Creatinine Ratio 23.6 H Glucose 139 H Lactate 1.3 Calcium 9.4 Total Bilirubin 1.2 AST 39 ALT 28 Alkaline Phosphatase 67 Total Protein 7.1 Albumin 4.5 Globulin 2.6 Albumin/Globulin Ratio 1.7 SARS-CoV-2 (PCR) 08/17/21 11:42 WBC RBC Hgb Hct MCV MCH MCHC RDW Plt Count Neut % (Auto) Lymph % (Auto) [place] % (Auto) Eos % (Auto) Baso % (Auto) Neut # (Auto) Lymph # (Auto) [place] # (Auto) Eos # (Auto) Baso # (Auto) Sodium Potassium Chloride Carbon Dioxide BUN Creatinine Estimated GFR BUN/Creatinine Ratio Glucose Lactate Calcium Total Bilirubin AST ALT Alkaline Phosphatase Total Protein Albumin Globulin Albumin/Globulin Ratio SARS-CoV-2 (PCR) Negative Assessment & Plan Assessment & Plan narrative: 65 minute spent with patient in discussing with ER physician, nursing, meeting with the patient, reviewing his workup and formulating a plan 81-year-old male with abdominal pain, nausea, vomiting with small-bowel obstruction Plan: Will admit to the hospital for further treatment and monitoring Will make patient NPO except meds with sips Will provide pain medications with IV morphine Will provide IV Zofran Will give IV fluids Will re-evaluate in a.m. and discussed was surgery and consider Gastrografin. Will ambulate Assessment 2. Coronary artery disease without any current complaints Plan: Continue outpatient treatment. Will start metoprolol Assessment 3. Previous history of GERD and softened ulcer without current symptoms Plan: Will put on proton pump inhibitor Assessment 4. DVT prophylaxis Plan: SCDs Assessment 5. Paroxysmal atrial fibrillation with current well controlled rate and sinus rhythm. Patient has declined anticoagulants due to previous experience. He is researching whether he wants to start Xarelto or Eliquis. A status is DNR Time Spent With Patient Critical Care time: I spent a total of [] minutes of critical care time on this patient's care today; this time is exclusive of procedural time. Quality VTE Deep Vein Thrombosis/Pulmonary Embolism Present on Admission: No
--- NOTE | 2021-08-17 20:25 | PC.NURSE ---
Addendum entered by Esme Hull R.N. 08/18/21 01:07: 2200: OOB for BRP & oral care. While standing at sink brushing teeth, c/o feeling woozy & dizzy while his head/face & upper torso became ashen in color, & he was unable to follow simple commands. A chair placed behind him in case he needed to sit, w/ contact guard assist, ambulated slowly back to bed. sitting back up while on the bed, patient c/o extreme nausea. emesis bag given, cold wet washcloth to back of neck. MS 2mg IVP given for 02/04 abd pain w/ good effect. zofran also given w/ good effect. Glucocheck at noc: 108. HOB up 30 degrees for comfort, slip on shoes removed from bedside and placed in closet, red non-skid socks applied. instructed patient to call for assist prior to getting OOB. he states he understands. call light w/in reach. Addendum entered by Esme Hull R.N. 08/17/21 20:29: per KAITY Stokes patient had 1645 scheduled dose of metorprolol prior to coming to floor. med next scheduled at 0900. Original Note: 2030: call to Dr Jara, requesting clarification for IVF: d/c the 1/2 NS @ 125/hour, start NS @ 150/hour. Infusing to LAC w/o problems. patient continues w/ NPO, states minor abd discomfort 09/07, this is tolerable. reports passing gas, BT x lower quads hypoactive. patient reports earlier N/V has resolved. oral swabs available at bedside thru NOC. Call light w/in reach.
[2021-08-17] MEDS: SODIUM CHLORIDE 0.9% 1,000 ML 150 ML IV (20:33)
[2021-08-17] MEDS: MORPHINE 2 MG/ML INJ IV (22:05)
[2021-08-17] MEDS: ONDANSETRON 4 MG/2 ML INJ IV (22:06)
[2021-08-18 01:00] VITALS: BP 118/75; PULSE 82; RESP 12; TEMP 36.7; O2SAT 94
[2021-08-18] MEDS: SODIUM CHLORIDE 0.9% 1,000 ML 150 ML IV ×4 (02:26→23:10)
[2021-08-18 05:00] VITALS: BP 92/70; PULSE 52; RESP 14; TEMP 36.6; O2SAT 97
[2021-08-18 06:30] LABS: Add Manual Diff / Slide Review NO; Basophils Absolute Auto 0 /uL (0-100); Basophils Percent Auto 0.4 % (0-2); Eosinophils Absolute Auto 0 /uL (0-450); Eosinophils Percent Auto 0.4 % (2-4); Hematocrit 39.1 % (41-53); Hemoglobin 13.6 g/dL (13.5-17.5); Lymphocytes Absolute Auto 600 /uL (1100-4500); Lymphocytes Percent Auto 9.3 % (25-40); Mean Corpuscular HGB Conc 34.7 % (30-36); Mean Corpuscular Hemoglobin 32.6 PG (26-34); Monocytes Absolute Auto 800 /uL (0-900); Monocytes Percent Auto 12.2 % (3-14); Neutrophils Absolute Auto 5300 /uL (1500-7000); Neutrophils Percent Auto 77.7 % (50-75); Platelet Count 164 X10^3/uL (150-400); Red Blood Cell Count 4.16 X10^6/uL (4.5-5.9); Red Cell Distribution Width 13.2 % (11.6-14.8); White Blood Cell Count 6.8 X10^3/uL (4.5-11.0)
[2021-08-18 06:41] LABS: Alanine Aminotransferase 20 IU/L (<50); Albumin 3.5 g/dL (3.5-5.0); Albumin Globulin Ratio 1.8 (1.0-2.8); Alkaline Phosphatase 47 U/L (38-126); Aspartate Aminotransferase 27 IU/L (17-59); BUN Creatinine Ratio 18.6 (6-22); Blood Urea Nitrogen 16 mg/dL (9-20); Calcium 8.2 mg/dL (8.4-10.2); Carbon Dioxide 27 mmol/L (22-32); Chloride 109 mmol/L (98-107); Estimated Glomerular Filt Rate > 60.0 mL/min (>60); Glucose 104 mg/dL (80-110); HEMOLYSIS < 15 (0-50); Potassium 4.2 mmol/L (3.4-5.1); Sodium 140 mmol/L (137-145); Total Protein 5.5 g/dL (6.3-8.2)
--- NOTE | 2021-08-18 08:43 | PM.PN.1 ---
Subjective Subjective Date Patient Seen: 08/18/21 Time Patient Seen: 08:43 Interval history: Patient seen in follow-up of small bowel obstruction. Patient overall feeling better. No pain as of this morning but did have pain through the night. Got 1 treatment with IV morphine. Otherwise seems to be doing well. No nausea vomiting today. Exam Vital Signs (past 8 hours): - 08/18/21 01:00 08/18/21 05:00 Temperature 98.1 F 97.9 F Pulse Rate 82 52 L Respiratory Rate 12 14 Blood Pressure 118/75 92/70 Pulse Oximetry 94 97 Oxygen Delivery Method Room Air Oxygen Flow Rate 0 Narrative Exam Narrative: Alert smiling interactive male in no acute distress. Lungs are clear. Heart regular rate and rhythm. Abdomen is soft with distended type bowel sounds. Completely nontender today. Objective Labs Result Diagrams: 08/18/21 05:50 08/18/21 05:50 Labs: Laboratory Results - last 24 hr 08/17/21 08/17/21 08/17/21 11:20 11:20 11:20 WBC 7.4 RBC 4.68 Hgb 15.0 Hct 44.6 MCV 95.3 MCH 32.1 MCHC 33.7 RDW 13.4 Plt Count 196 Neut % (Auto) 90.7 H Lymph % (Auto) 5.0 L [place] % (Auto) 4.1 Eos % (Auto) 0.0 L Baso % (Auto) 0.2 Neut # (Auto) 6700 Lymph # (Auto) 400 L [place] # (Auto) 300 Eos # (Auto) 0 Baso # (Auto) 0 Sodium 138 Potassium 4.5 Chloride 104 Carbon Dioxide 28 BUN 21 H Creatinine 0.89 Estimated GFR > 60.0 BUN/Creatinine Ratio 23.6 H Glucose 139 H Lactate 1.3 Calcium 9.4 Total Bilirubin 1.2 AST 39 ALT 28 Alkaline Phosphatase 67 Total Protein 7.1 Albumin 4.5 Globulin 2.6 Albumin/Globulin Ratio 1.7 SARS-CoV-2 (PCR) 08/17/21 08/18/21 08/18/21 11:42 05:50 05:50 WBC 6.8 RBC 4.16 L Hgb 13.6 Hct 39.1 L MCV 94.0 MCH 32.6 MCHC 34.7 RDW 13.2 Plt Count 164 Neut % (Auto) 77.7 H Lymph % (Auto) 9.3 L [place] % (Auto) 12.2 Eos % (Auto) 0.4 L Baso % (Auto) 0.4 Neut # (Auto) 5300 Lymph # (Auto) 600 L [place] # (Auto) 800 Eos # (Auto) 0 Baso # (Auto) 0 Sodium 140 Potassium 4.2 Chloride 109 H Carbon Dioxide 27 BUN 16 Creatinine 0.86 Estimated GFR > 60.0 BUN/Creatinine Ratio 18.6 Glucose 104 Lactate Calcium 8.2 L Total Bilirubin 1.0 AST 27 ALT 20 Alkaline Phosphatase 47 Total Protein 5.5 L Albumin 3.5 Globulin 2.0 Albumin/Globulin Ratio 1.8 SARS-CoV-2 (PCR) Negative [facility] Medical History Gastroesophageal reflux disease Ortiz's neuroma of both feet Social History household members: none Smoking Status: Never smoker alcohol intake: current Assessment & Plan Assessment & Plan narrative: Small-bowel obstruction. Patient overall is clinically slightly better. His bowel sounds are not normal in sound. But certainly no pain and abdomen soft. Will start clear liquids will see how he does. I do not think we have to do anything more will see how things look tomorrow. Will get flat plate in the morning. Otherwise no other changes. History of coronary artery disease. Stable at this time. History of 3rd asymptomatic continue PPI. DVT prophylaxis. SCDs. Paroxysmal atrial fibrillation. Controlled rate rhythm. Patient doing well. Has not wanted anticoagulations in the past will not provide . Will follow. Code status. DNR. Disposition. Will see how he tolerates p.o. will see what his KUB looks like in the morning and decide from there. He understands. Questions answered. Time Spent With Patient Critical Care time: I spent a total of [] minutes of critical care time on this patient's care today; this time is exclusive of procedural time. Quality VTE Deep Vein Thrombosis/Pulmonary Embolism Present on Admission: No
[2021-08-18 08:50] VITALS: BP 126/69; PULSE 78; RESP 18; TEMP 36.9; O2SAT 95
[2021-08-18 09:00] VITALS: BP 126/69; PULSE 78
[2021-08-18] MEDS: METOPROLOL ER 25 MG TABLET PO (09:00)
--- NOTE | 2021-08-18 11:06 | PC.NURSE ---
Addendum entered by Gera Gagnon R.N. 08/18/21 16:10: Discussing plan for d/c this evening. Pt reluctant. Respiratory Care team is coming with equipment and teaching this afternoon. Will speak with Dr. Nova regarding disposition. Original Note: Pt alert and oriented. Offers no overt complaints states he feels things moving and has had more gas. BT hypoactive. Belly soft non tender. Up independently in room.
--- NOTE | 2021-08-18 15:06 | CM.IDA ---
Initial DCP Assessment Note Pt is an 81 yo male, resident of [place], arrives w/stomach pain and found to have an SBO, patient receiving IVF, bowel rest w/clear liquids started today, no surgery indicated PCP: Ibis Jara Payer: FLORIAN/BRIANDAP Reviewed chart, met w/patient to introduce role. Patient lives alone, down the street from , [facility] and active at baseline. Patient independently ambulating in room and in hallway. Patient has a son that lives in [place]. Local supports are friends and a very tight knit group of neighbors on his block. 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 Will plan to follow closely in case any DC needs or concerns arise. VIKCIE Moran Discharge Planning/Care Management CM Discharge Assessment Start: 08/18/21 12:07 Freq: Status: Active Protocol: Document 08/18/21 15:04 TONYA (Rec: 08/18/21 15:06 TONYA [id number]) Discharge Planning Assessment Assigned Merchandise Displayer VICKIE Herrera/Assigned Designee Name pricila Puente Contact Information [phone] Advance Directives? Yes: JOAO PACHECO for HC, HC Directive Advance Directives on File No History Provided By Patient Prior Living Arrangements House Household Members none Type of transporation used prior to Drives own vehicle admit Independent with ADL's Yes Is patient alert and oriented? Yes Barriers to Discharge No Discharge Plan Home Transportation Arrangement Friend Referrals Initiated None needed
--- NOTE | 2021-08-18 16:13 | PC.NURSE ---
Pt alert and oriented. offers no overt complaint. has decided the best approach is to get up and get moving. Up in chair, walking a good part of the day. Had small formed BM. Feel less bloated and tender. Up with S.O.
[2021-08-18 16:30] VITALS: BP 114/73; PULSE 69; RESP 16; TEMP 36.8; O2SAT 99
[2021-08-18 19:41] VITALS: BP 117/76; PULSE 73; RESP 16; TEMP 36.7; O2SAT 99
[2021-08-19 06:03] VITALS: BP 112/73; PULSE 77; RESP 17; TEMP 36.5; O2SAT 94
[2021-08-19 06:52] LABS: Add Manual Diff / Slide Review NO; Basophils Absolute Auto 0 /uL (0-100); Basophils Percent Auto 0.5 % (0-2); Eosinophils Absolute Auto 100 /uL (0-450); Eosinophils Percent Auto 2.1 % (2-4); Hematocrit 36.7 % (41-53); Hemoglobin 12.5 g/dL (13.5-17.5); Lymphocytes Absolute Auto 600 /uL (1100-4500); Lymphocytes Percent Auto 14.4 % (25-40); Mean Corpuscular HGB Conc 33.9 % (30-36); Mean Corpuscular Hemoglobin 32.3 PG (26-34); Mean Corpuscular Volume 95.2 fL (80-100); Monocytes Absolute Auto 400 /uL (0-900); Monocytes Percent Auto 10.2 % (3-14); Neutrophils Absolute Auto 3200 /uL (1500-7000); Neutrophils Percent Auto 72.8 % (50-75); Platelet Count 149 X10^3/uL (150-400); Red Blood Cell Count 3.86 X10^6/uL (4.5-5.9); Red Cell Distribution Width 13.4 % (11.6-14.8); White Blood Cell Count 4.4 X10^3/uL (4.5-11.0)
[2021-08-19 07:02] LABS: Alanine Aminotransferase 19 IU/L (<50); Albumin 3.1 g/dL (3.5-5.0); Albumin Globulin Ratio 1.5 (1.0-2.8); Alkaline Phosphatase 45 U/L (38-126); Aspartate Aminotransferase 29 IU/L (17-59); Blood Urea Nitrogen 12 mg/dL (9-20); Carbon Dioxide 26 mmol/L (22-32); Chloride 110 mmol/L (98-107); Estimated Glomerular Filt Rate > 60.0 mL/min (>60); Globulin 2.1 g/dL (1.7-4.1); Glucose 91 mg/dL (80-110); HEMOLYSIS < 15 (0-50); Potassium 3.8 mmol/L (3.4-5.1); Sodium 140 mmol/L (137-145); Total Protein 5.2 g/dL (6.3-8.2)
--- NOTE | 2021-08-19 07:47 | DI.RAD.S_ITS ---
PROCEDURE: XR KUB INDICATIONS: Small-bowel obstruction TECHNIQUE: One view of the abdomen acquired. COMPARISON: Located Within [facility], CR, XR ACUTE ABDOMEN SERIES, 08/17/2021, 12:27. Located Within [facility], CT, CT ABDOMEN PELVIS W CON, 08/17/2021, 13:38. FINDINGS: Surgical changes and devices: None. Bowel: Abnormally dilated loops of gas-filled small bowel are again seen, that measure up to 5 cm. Soft tissues: No suspicious abdominal calcifications. Visualized solid organ contours appear normal in size. Bones: No suspicious bony lesions. Age-appropriate bony degenerative changes are seen. IMPRESSION: Continued abnormally dilated loops of small bowel, which are consistent with small bowel obstruction. Dictated by: Mykel Marrufo M.D. on 08/19/2021 at 7:18 Approved by: Mykel Marrufo M.D. on 08/19/2021 at 7:20
[2021-08-19] MEDS: METOPROLOL ER 25 MG TABLET PO (09:36)
[2021-08-19 10:30] VITALS: BP 111/67; PULSE 63; RESP 16; TEMP 36.5; O2SAT 99
--- NOTE | 2021-08-19 11:17 | P.PN_ITS ---
Subjective Subjective Date Patient Seen: 08/19/21 Time Patient Seen: 11:17 Interval history: Patient overall is feeling well. Having a little bit of discomfort in lower abdomen but he is not sure if it isn't just because he is hungry. Patient had 4 bowel movements over the last 24 hours. Passing flatus. No nausea no vomiting. Otherwise seems to be feeling better. Exam Vital Signs (past 8 hours): - 08/19/21 06:03 08/19/21 10:30 Temperature 97.7 F 97.7 F Pulse Rate 77 63 Respiratory Rate 17 16 Blood Pressure 112/73 111/67 Pulse Oximetry 94 99 Oxygen Delivery Method Room Air Oxygen Flow Rate 0 Narrative Exam Narrative: Alert smiling elderly male moving around the room in no acute distress. Lungs are clear heart regular rate and rhythm abdomen is soft positive bowel sounds nontender. Objective Labs Result Diagrams: 08/19/21 06:31 08/19/21 06:31 Labs: Laboratory Results - last 24 hr 08/19/21 08/19/21 06:31 06:31 WBC 4.4 L RBC 3.86 L Hgb 12.5 L Hct 36.7 L MCV 95.2 MCH 32.3 MCHC 33.9 RDW 13.4 Plt Count 149 L Neut % (Auto) 72.8 Lymph % (Auto) 14.4 L [place] % (Auto) 10.2 Eos % (Auto) 2.1 Baso % (Auto) 0.5 Neut # (Auto) 3200 Lymph # (Auto) 600 L [place] # (Auto) 400 Eos # (Auto) 100 Baso # (Auto) 0 Sodium 140 Potassium 3.8 Chloride 110 H Carbon Dioxide 26 BUN 12 Creatinine 0.80 Estimated GFR > 60.0 BUN/Creatinine Ratio 15.0 Glucose 91 Calcium 8.0 L Total Bilirubin 1.0 AST 29 ALT 19 Alkaline Phosphatase 45 Total Protein 5.2 L Albumin 3.1 L Globulin 2.1 Albumin/Globulin Ratio 1.5 [facility] Medical History Gastroesophageal reflux disease Ortiz's neuroma of both feet Social History household members: none Smoking Status: Never smoker alcohol intake: current Assessment & Plan Assessment & Plan narrative: Small-bowel obstruction. X-ray shows continued possible small bowel obstruction but clinically doing extremely well. Discussed with surgeon. He feels as if we should vice president of talent management it more on his clinical presentation than x-ray. Feels as if many times that is not consistent with clinical picture. White count down. Vital signs are stable. Exam is normal. At this point will advance diet. If patient feels well tomorrow tolerates food will discharge home. He understands q uestions answered. History of coronary artery disease stable at this time. Dehydration. Resolved. History of reflux. Continue PPI. DVT prophylaxis. Patient is ambulatory. Continue SCDs. Paroxysmal atrial fibrillation. Rate is controlled feeling well will. Stable. Code status DNR. Disposition. Doing well. Expect discharge tomorrow if tolerates p.o. Time Spent With Patient Critical Care time: I spent a total of [] minutes of critical care time on this patient's care today; this time is exclusive of procedural time. Quality VTE Deep Vein Thrombosis/Pulmonary Embolism Present on Admission: No
[2021-08-19 17:00] VITALS: BP 122/78; PULSE 68; RESP 16; TEMP 36.8; O2SAT 95
[2021-08-19 19:57] VITALS: BP 111/74; PULSE 68; RESP 17; TEMP 36.8; O2SAT 98
[2021-08-20 08:00] VITALS: BP 113/71; PULSE 76; RESP 18; TEMP 36.1
[2021-08-20 09:13] VITALS: BP 104/69; PULSE 69
[2021-08-20] MEDS: METOPROLOL ER 25 MG TABLET PO (09:13)
--- NOTE | 2021-08-20 10:38 | P.DS_ITS ---
History of Present Illness History of Present Illness Date Patient Seen: 08/20/21 Time Patient Seen: 10:38 Date of Onset of Symptoms: 08/20/21 Chief complaint: stomach pain no bowel movement Narrative: See history and physical dictated by Dr. Jara 08/17/2019 to Discharge Providers Provider Date of admission: 08/17/21 14:41 Discharge Date: 08/20/21 Primary care physician: Vandana Jara MD Discharge provider: David Ace MD Summary Hospital Course Discharge Diagnosis: Small-bowel obstruction Coronary artery disease Dehydration Paroxysmal atrial fibrillation Hospital Course: Small-bowel obstruction. Patient was placed on NPO and within 24 hours was feeling markedly better. Patient was having very minimal pain. Repeat chest x- ray showed some question of some continued small-bowel changes. Discussed with surgeon who said essentially we should follow his clinical course which was excellent. We increased his diet he tolerated it well and was discharged home. Etiology of his small bowel obstruction is unclear but certainly resolved at this time. He will slowly increase his diet until he is back to normal diet and follow up with Dr. Jara in 2 weeks. Dehydration. Patient was mildly dehydrated at the course of admission he was started on IV replacement and then re-evaluated in 24 hours this was all discontinued because he was doing so well. Completely resolved at this time and he is euvolemic. History of reflux. Continue his usual PPI. Atrial fibrillation. Patient was started on his usual metoprolol as soon as he was taking p.o. and no issues were had. He was tolerating it well had no palpitations or increasing his heart rate. Vital signs remained stable and he was followed. Patient was not discharged on anticoagulation because he has refused in the past. Will discuss that with his usual PMD. Exam Vital Signs (past 8 hours): - 08/20/21 08:00 08/20/21 09:13 Temperature 97 F L Pulse Rate 76 69 Respiratory Rate 18 Blood Pressure 113/71 104/69 Oxygen Delivery Method Room Air Oxygen Flow Rate 0 Narrative Exam Narrative: Alert smiling active elderly male moving around the room in no acute distress Lungs are clear. Heart is irregular but well controlled rate abdomen is soft positive bowel sounds completely nontender today. Extremities without cyanosis clubbing edema. Objective Labs Result Diagrams: 08/19/21 06:31 08/19/21 06:31 [facility] Medical History Gastroesophageal reflux disease Ortiz's neuroma of both feet Social History household members: none Smoking Status: Never smoker alcohol intake: current Discharge Assessment & Plan Assessment and Plan Assessment: Small-bowel obstruction resolved Plan of Treatment: Slowly increase diet until normal and follow up with Dr. Jara in 2 weeks Discharge Plan Discharge Plan Patient Disposition: Home Discharge orders & Medications Prescriptions: New metoprolol succinate 25 mg Tablet Extended Release 24 Hr 25 mg PO DAILY Qty: 0 0RF Continued ascorbic acid (vitamin C) 1,000 mg PO QAM 0RF aspirin [Adult Aspirin Regimen] 81 mg tablet,delayed release (DR/EC) 81 mg PO DAILY 0RF Probiotic capsule 1 caplet PO QAM 0RF astaxanthin capsule 12 mg PO QAM 0RF Label Comments: patient is ok to not take this med while hospitalized Rx Instructions: supplement omega [id number] oil [Fish Oil] 1,000 mg (120 mg-180 mg) Capsule 1 cap PO DAILY 0RF Follow up/Referrals: Vandana Jara MD [Primary Care Provider] - 2 Weeks Discharge Health Status Multidrug resistant organism: No MDRO Diet/Activity/Treatments Diet: Diet as Tolerated Diet comment: slow return to normal diet over two days Activity: as tolerated Skin/Wound/Dressing Care Report to your healthcare provider any signs of infection, such as:: chills, fever and increased pain Visit Report/Discharge Packet Instructions: DI for Small Bowel Obstruction Discharge Data Primary Care Provider: Vandana Jara Quality VTE Deep Vein Thrombosis/Pulmonary Embolism Present on Admission: No
--- NOTE | 2021-08-20 10:43 | CM.DPC ---
DCP Discharge Home Per MD, pt is medically stable to d/c home today and no identified barriers to discharge. Per RN, pt has been ambulating, had bowel function return, tolerating advancing diet and ready for d/c home today. SW provided copy of Medicare Message for pt and he is agreeable to d/c home today. Plan: Patient to d/c home today via POV and no identified needs at this time and f/u with Dr. Jara in the clinic office within 2 weeks after discharge. No further SW needs at this time. Loree Hassan MSW
--- NOTE | 2021-08-20 12:42 | PC.NURSE ---
Pt discharged at 1150, escorted off floor in wheelchair accompanied by floor staff. IV removed, discharge teaching completed, follow up appointments reviewed and questions answered. Pt discharged to home, transported in a private vehicle.
== END 2021-08-20 11:50 | disposition home or self-care (01) | DRG 390 ==
LOC: ED 14:34 → AC 14:41
PROVIDERS: Family Medicine; Admitting Provider Family Medicine; Emergency Provider Emergency Medicine; PCP Family Medicine; Referring Provider Emergency Medicine; Visit Provider Family Medicine
DX: K56.609 Unspecified intestinal obstruction, unspecified as to partial versus complete obstruction (principal); I48.0 Paroxysmal atrial fibrillation; I25.10 Atherosclerotic heart disease of native coronary artery without angina pectoris; K21.9 Gastro-esophageal reflux disease without esophagitis; E86.0 Dehydration; Z66 Do not resuscitate; Z95.5 Presence of coronary angioplasty implant and graft; Z20.822 Contact with and (suspected) exposure to COVID-19
CPT/HCPCS: 36415; 74018; 74022; 74177; 80053; 82962; 83605; 85025; 87635; 96360; 96361; 99284; C9803; J2270; J2405; Q9967

== ENCOUNTER 2021-10-30 06:51 | Observation (INO) | payer MEDICARE, SELFPAY ==
[2021-08-17 15:23] VITALS: BMI 23.0
[2021-10-30] VITALS (14 sets, daily range): BP systolic 94–122; BP diastolic 52–83; PULSE 62–80; RESP 15–25; TEMP 36.5–36.9; O2SAT 94–99; BMI 23.0
[2021-10-30 07:23] LABS: Add Manual Diff / Slide Review NO; Basophils Absolute Auto 0 /uL (0-100); Basophils Percent Auto 0.6 % (0-2); Eosinophils Absolute Auto 100 /uL (0-450); Eosinophils Percent Auto 1.3 % (2-4); Hematocrit 42.9 % (41-53); Hemoglobin 14.5 g/dL (13.5-17.5); Lymphocytes Absolute Auto 500 /uL (1100-4500); Lymphocytes Percent Auto 7.2 % (25-40); Mean Corpuscular HGB Conc 33.8 % (30-36); Mean Corpuscular Hemoglobin 32.1 PG (26-34); Monocytes Absolute Auto 500 /uL (0-900); Monocytes Percent Auto 7.9 % (3-14); Neutrophils Absolute Auto 5300 /uL (1500-7000); Platelet Count 174 X10^3/uL (150-400); Red Blood Cell Count 4.52 X10^6/uL (4.5-5.9); Red Cell Distribution Width 13.6 % (11.6-14.8); White Blood Cell Count 6.4 X10^3/uL (4.5-11.0)
[2021-10-30 07:29] LABS: Alanine Aminotransferase 23 IU/L (<50); Albumin 4.2 g/dL (3.5-5.0); Albumin Globulin Ratio 1.8 (1.0-2.8); Alkaline Phosphatase 60 U/L (38-126); Aspartate Aminotransferase 33 IU/L (17-59); BUN Creatinine Ratio 22.2 (6-22); Bilirubin Total 0.9 mg/dL (0.2-1.3); Blood Urea Nitrogen 22 mg/dL (9-20); Calcium 8.9 mg/dL (8.4-10.2); Carbon Dioxide 30 mmol/L (22-32); Chloride 104 mmol/L (98-107); Estimated Glomerular Filt Rate > 60.0 mL/min (>60); Globulin 2.4 g/dL (1.7-4.1); Glucose 118 mg/dL (80-110); HEMOLYSIS < 15 (0-50); Lipase 71 U/L (23-300); Potassium 4.2 mmol/L (3.4-5.1); Sodium 139 mmol/L (137-145); Total Protein 6.6 g/dL (6.3-8.2)
[2021-10-30] MEDS: SODIUM CHLORIDE 0.9% 1,000 ML 150 ML IV (07:45)
--- NOTE | 2021-10-30 08:12 | ED_ITS ---
HPI - Abdominal Pain General Chief Complaint: Abdominal Pain Stated Complaint: pain in lower abd Time Seen by Provider: 10/30/21 07:06 Source: patient Mode of arrival: Ambulatory Limitations: no limitations History of Present Illness HPI narrative: This is a 81-year-old male with history of coronary artery disease who had 3 stents in July 2020 with a NSTEMI, prior twisted bowel, appendectomy and double hernia repair. Patient states that he started some epigastric discomfort over the last several days after eating some food with a clamp sauce. He his dinner partner had a different meal but same sauce and felt similar and he states another individual actually started vomiting at the restaurant they were at while there. Patient states since then he has continued to have a little bit of discomfort like he is very hungry but a little bit stronger and occasional nausea. He denies any fevers or chills. He has not any vomiting. Last night at about 2 or 3:00 a.m. in the morning he started having significant abdominal pain on the left lower quadrant that then moved to the suprapubic region. Patient states Justin very intense almost like a contraction last a minute and then sore to resolve for several minutes. He got up ambulated for about an hour and this seemed to improve his symptoms he was asymptomatic for an hour symptoms recurred again with a similar pattern and he has been upright ambulating it seems to improve his symptoms and since then he has had some minor twinges but no significant pain. He denies any back or flank pain. He states he has passed gas 3 times overnight. He has been having regular bowel movements. No black or bloody bowel movements. He states he had very similar symptoms in the past but was not passing gas and was admitted for what he describes as a twisted bowel. He had pain medication ambulated and it resolved without other intervention. He is on aspirin 162 mg daily, metoprolol and atorvastatin for CAD. No tobacco, occasional alcohol, no illicit. Patient lives independently he continues to work and is quite physically active. Related Data Home Medications Medication Instructions Recorded Confirmed ascorbic acid (vitamin C) 1,000 mg PO QAM 03/18/18 10/30/21 aspirin 81 mg tablet,delayed 162 mg PO DAILY 06/18/18 10/30/21 release (Adult Aspirin Regimen) Probiotic 1 caplet PO QAM 06/17/20 10/30/21 astaxanthin 12 mg PO QAM 06/17/20 10/30/21 omega 4-mef-eup-fish oil 1,000 mg 1 cap PO DAILY 06/17/20 10/30/21 (120 mg-180 mg) capsule (Fish Oil) metoprolol succinate 25 mg 12.5 mg PO DAILY 10/30/21 10/30/21 tablet,extended release 24 hr Allergies Allergy/AdvReac Type Severity Reaction Status Date / Time No Known Drug Allergies Allergy Verified 11/07/18 15:31 Review of Systems Review of Systems ROS Unobtainable: All systems reviewed & are unremarkable except as noted in HPI and below Patient History Medical History Gastroesophageal reflux disease Ortiz's neuroma of both feet Social History household members: none Smoking Status: Never smoker alcohol intake: current Smoking Status: Never smoker alcohol intake frequency: a few times a month Substance Use Type: does not use Exam Narrative Exam Narrative: GENERAL: Alert and oriented x three, elderly male in mild distress. HEENT: Head normocephalic, atraumatic, EOMI, pupils reactive, face symmetric, moist mucous membranes NECK: Supple, full range of motion CARDIOVASCULAR: Regular rate and rhythm without murmurs, rubs or gallops. RESPIRATORY: Breath sounds equal bilaterally, no wheezes rales or rhonchi. ABDOMEN: Soft, nontender. Mildly distended. Normoactive bowel sounds all 4 quadrants. No guarding or rebound, rigidity, no mass : No CVA tenderness EXTREMITIES: Normal range of motion, no clubbing or edema. Neurovascularly intact NEUROLOGICAL: Cranial nerves II through XII grossly intact. Moving all extremities SKIN: Warm, dry, no petechiae, no rashes or lesions. Initial Vital Signs Initial Vital Signs: Vital Signs Pulse Rate 79 10/30/21 06:58 Pulse Oximetry 96 10/30/21 06:58 Course Orders Ordered: ED Orders 10/30/21 10:34 COVID19 - ADMIT (AWNING ERECTOR swab/PCR) Stat Discontinued Medications Aspirin (Aspirin Ec 81 Mg Tablet) 162 mg PO DAILY DESHAWN Atorvastatin Calcium (Atorvastatin 20 Mg Tablet) 40 mg PO BEDTIME DESHAWN Fish Oil (Fish Oil 1,000 Mg Capsule) 1,000 mg PO DAILY DESHAWN Sodium Chloride (Normal Saline 0.9%) 1,000 mls @ 150 mls/hr IV CONT DESHAWN Last Infusion: 10/30/21 09:41 Dose: 0 mls/hr Documented by: Admin: 10/30/21 07:45 Dose: 150 mls/hr Documented by: ARLENE Sodium Chloride (Normal Saline 0.9%) 1,000 mls @ 125 mls/hr IV CONT DESHAWN Last Admin: 10/30/21 16:32 Dose: 125 mls/hr Documented by: KIT Metoprolol Succinate (Metoprolol Er 25 Mg Tablet) 12.5 mg PO DAILY DESHAWN Naloxone HCl (Naloxone 0.4 Mg/Ml Vial) 0.2 mg IV Q2MIN PRN PRN Reason: Opiate Reversal Ondansetron HCl (Ondansetron 4 Mg/2 Ml Inj) 4 mg IV Q6HR PRN PRN Reason: Nausea And Vomiting Last Admin: 10/30/21 09:31 Dose: 4 mg Documented by: ARLENE Consultations Consultation #1: Dr. Shrestha accepts for observation plan for conservative management and will escalate care as needed. Time: 09:29 Vital Signs Vital signs: Vital Signs - 8 hr 10/30/21 06:59 Temperature 98.3 F Pulse Rate 78 Respiratory Rate 20 Blood Pressure 118/78 Pulse Oximetry 97 MDM - Abdominal Pain Lab Data Result diagrams: 10/30/21 07:10 10/30/21 07:10 Labs: Lab Results 10/30/21 10/30/21 Range/Units 07:10 07:10 WBC 6.4 (4.5-11.0) X10^3/uL RBC 4.52 (4.5-5.9) X10^6/uL Hgb 14.5 (13.5-17.5) g/dL Hct 42.9 (41-53) % MCV 95.0 (80-100) fL MCH 32.1 (26-34) PG MCHC 33.8 (30-36) % RDW 13.6 (11.6-14.8) % Plt Count 174 (150-400) X10^3/uL Neut % (Auto) 83.0 H (50-75) % Lymph % (Auto) 7.2 L (25-40) % [place] % (Auto) 7.9 (3-14) % Eos % (Auto) 1.3 L (2-4) % Baso % (Auto) 0.6 (0-2) % Neut # (Auto) 5300 (4059-0384) /uL Lymph # (Auto) 500 L (9087-8510) /uL [place] # (Auto) 500 (0-900) /uL Eos # (Auto) 100 (0-450) /uL Baso # (Auto) 0 (0-100) /uL Sodium 139 (137-145) mmol/L Potassium 4.2 (3.4-5.1) mmol/L Chloride 104 (98-107) mmol/L Carbon Dioxide 30 (22-32) mmol/L BUN 22 H (9-20) mg/dL Creatinine 0.99 (0.66-1.25) mg/dL Estimated GFR > 60.0 (>60) mL/min BUN/Creatinine Ratio 22.2 H (6-22) Glucose 118 H (80-110) mg/dL Calcium 8.9 (8.4-10.2) mg/dL Total Bilirubin 0.9 (0.2-1.3) mg/dL AST 33 (17-59) IU/L ALT 23 (<50) IU/L Alkaline Phosphatase 60 (38-126) U/L Total Protein 6.6 (6.3-8.2) g/dL Albumin 4.2 (3.5-5.0) g/dL Globulin 2.4 (1.7-4.1) g/dL Albumin/Globulin Ratio 1.8 (1.0-2.8) Lipase 71 (23-300) U/L Imaging Data CT scan - abdomen/pelvis: Radiologist's Impression: [address] [address] [address] Scan Report Signed Patient: Trent Woodard MR#: [id number] : 1940 Acct:[id number] Age/Sex: 81 / M Date of Service: 10/30/21 Loc: ED Accession Number: [id number] ?? Procedure: CT abdomen pelvis w con Ordering Provider: Pinky Hewitt D.O. PROCEDURE:? CT ABDOMEN PELVIS W CON ? INDICATIONS:? abd pain, similar to prior twisted bowel? suprapubic ? TECHNIQUE:? After the administration of oral and IV contrast, axial sections were acquired from the lung bases to the pubic symphysis.? Coronal and sagittal reformats were performed.? For radiation dose reduction, the following was used:? automated exposure control, adjustment of mA and/or kV according to patient size. ? COMPARISON:? [facility], CR, XR KUB, 08/19/2021, 7:46.? [facility], CT, CT ABDOMEN PELVIS W CON, 08/17/2021, 13:38. ? FINDINGS:? Image quality:? Excellent.? ? Lung bases:? Bibasilar atelectasis. Large hiatal hernia. Heart:? No significant findings. ? ? ABDOMEN: Liver:? Normal size.? Mild hepatic steatosis.? ? Gallbladder:? Unremarkable.? ? Biliary ducts:? Unremarkable.? ? Pancreas:? Unremarkable.? ? Spleen:? Unremarkable.? ? Adrenal Glands:? Unremarkable.? ? Kidneys and Ureters:? Unremarkable.? ? ? Stomach and Bowel:? Proximal small bowel loops are mildly dilated measuring up to 3.5 cm in diameter.? There are multiple air-fluid levels.? The transitional zone is in right abdomen, likely involving the distal ileum.? The CT findings are consistent with small bowel obstruction.? There is a large amount of stool in colon. Peritoneum:? There is a small amount of free fluid in pelvis.? No free air.? ? Ventral Wall: ? No hernia.? Abdominal Nodes:? No retroperitoneal or mesenteric adenopathy by size criteria.? Vessels:? Aorta and inferior vena cava are normal in size.? ? PELVIS: Pelvic Organs:? Unremarkable.? ? Bladder:? Unremarkable.? ? Pelvic Nodes: No enlarged lymph nodes.? Miscellaneous: No inguinal hernias are seen. ? ? ? Bones:? Unremarkable.? IMPRESSION:? ? 1. Small bowel obstruction.? The transitional zone is in the distal ileum. 2. There is a small amount of free fluid. 3. Large hiatal hernia.? Dictated by: Zaria Mera M.D. on 10/30/2021 at 8:57 ? ? Approved by: Zaria Mera M.D. on 10/30/2021 at 9:08?? MDM Narrative Medical decision making narrative: This is an 81-year-old male who presents with abdominal pain consistent with symptoms he had with a prior small-bowel obstruction that resolved with conservative management. Patient has had some mild nausea but no active vomiting for the last several days. He states last time he was not passing gas or having any bowel movements and he has been doing this recently. His CBC shows a leftward shift but no other major changes, BUN is 22 but appropriate renal function and electrolytes with no major changes to abdominal labs. Based on patient's symptoms CT abdomen pelvis seems quite appropriate. He has had multiple abdominal surgeries that could contribute to possible recurrent partial bowel obstruction. Patient's imaging does show what appears to be a bowel obstruction at this point clinically would be partial. Discussed with his primary care service to bring in for observation on conservative management at this time. Patient is agreeable and Dr. Shrestha here in department to evaluate and admit patient. Discharge Plan Departure Patient Disposition: Admitted as Observation Clinical Impression: Partial bowel obstruction Admit Date/Time: 10/30/21 09:45 Admit Provider: Adam Shrestha
--- NOTE | 2021-10-30 08:45 | DI.CT.S_ITS ---
PROCEDURE: CT ABDOMEN PELVIS W CON INDICATIONS: abd pain, similar to prior twisted bowel suprapubic TECHNIQUE: After the administration of oral and IV contrast, axial sections were acquired from the lung bases to the pubic symphysis. Coronal and sagittal reformats were performed. For radiation dose reduction, the following was used: automated exposure control, adjustment of mA and/or kV according to patient size. COMPARISON: [facility], CR, XR KUB, 08/19/2021, 7:46. [facility], CT, CT ABDOMEN PELVIS W CON, 08/17/2021, 13:38. FINDINGS: Image quality: Excellent. Lung bases: Bibasilar atelectasis. Large hiatal hernia. Heart: No significant findings. ABDOMEN: Liver: Normal size. Mild hepatic steatosis. Gallbladder: Unremarkable. Biliary ducts: Unremarkable. Pancreas: Unremarkable. Spleen: Unremarkable. Adrenal Glands: Unremarkable. Kidneys and Ureters: Unremarkable. Stomach and Bowel: Proximal small bowel loops are mildly dilated measuring up to 3.5 cm in diameter. There are multiple air-fluid levels. The transitional zone is in right abdomen, likely involving the distal ileum. The CT findings are consistent with small bowel obstruction. There is a large amount of stool in colon. Peritoneum: There is a small amount of free fluid in pelvis. No free air. Ventral Wall: No hernia. Abdominal Nodes: No retroperitoneal or mesenteric adenopathy by size criteria. Vessels: Aorta and inferior vena cava are normal in size. PELVIS: Pelvic Organs: Unremarkable. Bladder: Unremarkable. Pelvic Nodes: No enlarged lymph nodes. Miscellaneous: No inguinal hernias are seen. Bones: Unremarkable. IMPRESSION: 1. Small bowel obstruction. The transitional zone is in the distal ileum. 2. There is a small amount of free fluid. 3. Large hiatal hernia. Dictated by: Zaria Mera M.D. on 10/30/2021 at 8:57 Approved by: Zaria Mera M.D. on 10/30/2021 at 9:08
[2021-10-30] MEDS: ONDANSETRON 4 MG/2 ML INJ IV (09:31)
--- NOTE | 2021-10-30 09:57 | P.HP_ITS ---
History of Present Illness History of Present Illness Date Patient Seen: 10/30/21 Time Patient Seen: 09:57 Date of Onset of Symptoms: 10/30/21 Chief complaint: pain in lower abd Narrative: PT with hx of abdominal surgery (appendix and hernia x2) and bowel obstruction presents to ED with acute abdominal pain and no passage of flatus since 6am this morning. Last BM was yesterday morning and was regular. Usually moves his bowels each morning after coffee. Otherwise feels generally ok denies recent illness. Patient History Medical History Gastroesophageal reflux disease Ortiz's neuroma of both feet Family & Social History Social History: household members none Safety & Behavioral: Feels Safe in Current Yes Environment Been Physically Hurt or No Threatened By a Person Tobacco & Substance use: Smoking Status Never smoker alcohol intake current alcohol intake frequency a few times a month Substance Use Type does not use Meds Home Medications and Allergies Home Medications Medication Instructions Recorded Confirmed Type ascorbic acid (vitamin C) 1,000 mg PO QAM 03/18/18 10/30/21 History aspirin 81 mg tablet,delayed 162 mg PO DAILY 06/18/18 10/30/21 History release (Adult Aspirin Regimen) Probiotic 1 caplet PO QAM 06/17/20 10/30/21 History astaxanthin 12 mg PO QAM 06/17/20 10/30/21 History omega 7-zuz-bjb-fish oil 1,000 mg 1 cap PO DAILY 06/17/20 10/30/21 History (120 mg-180 mg) capsule (Fish Oil) metoprolol succinate 25 mg 12.5 mg PO DAILY 10/30/21 10/30/21 History tablet,extended release 24 hr Allergies Allergy/AdvReac Type Severity Reaction Status Date / Time No Known Drug Allergies Allergy Verified 11/07/18 15:31 Review of Systems Review of Systems Narrative: all systems reviewed and negative except as otherwise documented in HPI Exam Vital Signs (past 8 hours): - 10/30/21 06:59 Temperature 98.3 F Pulse Rate 78 Respiratory Rate 20 Blood Pressure 118/78 Pulse Oximetry 97 Oxygen Delivery Method Room Air Narrative Exam Narrative: alert elder laying on gurney HENMT Head: normocephalic and atraumatic Eyes General: appearance normal, both eyes and all related structures Neck Neck: normal visual inspection, full ROM, trachea midline and supple Resp Auscultation: clear to auscultation bilaterally Cardio Rate: regular rate Rhythm: regular rhythm Heart Sounds: S1 normal and S2 normal GI Inspection: normal to inspection Other: diminished bowel sounds globally. reports tender to palpation in all quadrants worst is epigastric Skin General: no rashes or lesions noted Neuro General: patient alert, patient awake, patient oriented x3, moves all extremities and CN's II-XI intact bilaterally Extrem General: normal to inspection and full ROM Psych Appearance: grossly normal and well kempt Mental Status: mental status grossly normal Speech and Movement: speech and movement normal Objective Labs Result Diagrams: 10/30/21 07:10 10/30/21 07:10 Labs: Laboratory Results - last 24 hr 10/30/21 10/30/21 07:10 07:10 WBC 6.4 RBC 4.52 Hgb 14.5 Hct 42.9 MCV 95.0 MCH 32.1 MCHC 33.8 RDW 13.6 Plt Count 174 Neut % (Auto) 83.0 H Lymph % (Auto) 7.2 L [place] % (Auto) 7.9 Eos % (Auto) 1.3 L Baso % (Auto) 0.6 Neut # (Auto) 5300 Lymph # (Auto) 500 L [place] # (Auto) 500 Eos # (Auto) 100 Baso # (Auto) 0 Sodium 139 Potassium 4.2 Chloride 104 Carbon Dioxide 30 BUN 22 H Creatinine 0.99 Estimated GFR > 60.0 BUN/Creatinine Ratio 22.2 H Glucose 118 H Calcium 8.9 Total Bilirubin 0.9 AST 33 ALT 23 Alkaline Phosphatase 60 Total Protein 6.6 Albumin 4.2 Globulin 2.4 Albumin/Globulin Ratio 1.8 Lipase 71 Assessment & Plan Assessment & Plan narrative: #acute bowel obstruction per CT with inflection point at ileus NPO except sips of coffee, IVF at 125, encourage ambulation if flatus develops can try some jello for dinner #Hx of [place] continue statin, BB and ASA 81 dispo: pending improvement PCP: Estefani Code: DNR MDM: Simon Thomas [phone] dvt ppx: SCDs he is mobile Time Spent With Patient Critical Care time: I spent a total of [] minutes of critical care time on this patient's care today; this time is exclusive of procedural time.
[2021-10-30 11:15] LABS: COVID19 - ADMIT (NP swab/PCR) Negative (Negative)
--- NOTE | 2021-10-30 11:36 | PC.NURSE ---
Addendum entered by Dominga Byers R.N. 10/30/21 18:46: Patient has his NS infusing at 125cc/hr. He tolerated some jello and water. Resting comfortably now. Addendum entered by Dominga Byers R.N. 10/30/21 18:44: Please ignore note about patients iv being taken out and patient being discharged. Charted on wrong patient. Addendum entered by Dominga Byers R.N. 10/30/21 13:25: Patient is resting comfortably and waiting to see the dr. We have no orders at this time. will most likely being seeing patient. Original Note: Assess- Patient admitted to the floor with dx of small bowel obstruction. He is ambulatory and able to walk. Abdomen is slightly distended, bt are active but hypo. He had a bowel movement yesterday, states that he woke up at 0200 in significant abdominal pain and then ambulated around and felt better. But when he woke up this morning, it started back so he came back to the ER. He denies pain at this time.
[2021-10-30] MEDS: SODIUM CHLORIDE 0.9% 1,000 ML 125 ML IV ×2 (16:32→23:36)
--- NOTE | 2021-10-30 17:28 | PC.NURSE ---
pt's IV removed by nurse, discharge instructions and Rx hardcopy both given to pt with instructions, pt signed discharge papers and was escorted out by [employer] PR[employer] OPERATOR with all his belongings
[2021-10-30] MEDS: ATORVASTATIN 20 MG TABLET 40 MG PO (21:43)
--- NOTE | 2021-10-31 06:58 | PC.NURSE ---
call from Dr Shrestha patient to be NPO x sips of clears w/ meds. chart updated. patient did well thru NOC, denies pain, not passing gas.
[2021-10-31 08:16] VITALS: BP 117/79; PULSE 74; RESP 21; TEMP 36.7; O2SAT 96
[2021-10-31] MEDS: FISH OIL 1,000 MG CAPSULE 1000 MG PO (09:43)
[2021-10-31] MEDS: ASPIRIN EC 81 MG TABLET 162 MG PO (09:43)
[2021-10-31] MEDS: METOPROLOL ER 25 MG TABLET 12.5 MG PO (09:44)
[2021-10-31] MEDS: SODIUM CHLORIDE 0.9% 1,000 ML 125 ML IV (09:48)
--- NOTE | 2021-10-31 10:59 | PC.NURSE ---
Addendum entered by Dominga Byers R.N. 10/31/21 15:51: Patient continues to ambulate in the halls. He denies nausea or abdominal pain and is tolerating a regular diet well. Original Note: Assess- Patient is alert and oriented x3, he is now on a general diet and had a medium sized brown soft bowel movement. O nausea and patient is ambulating in the halls. Visiting with his s.o. now. will be over to see patient later.
[2021-10-31 11:25] VITALS: BP 98/66; PULSE 66; RESP 20; TEMP 36.6; O2SAT 96
--- NOTE | 2021-10-31 12:53 | P.PN_ITS ---
Subjective Subjective Date Patient Seen: 10/31/21 Time Patient Seen: 12:53 Exam Vital Signs (past 8 hours): - 10/31/21 08:16 10/31/21 11:25 Temperature 98.0 F 97.9 F Pulse Rate 74 66 Respiratory Rate 21 20 Blood Pressure 117/79 98/66 Pulse Oximetry 96 96 Oxygen Delivery Method Room Air Oxygen Flow Rate 0 Objective Labs Result Diagrams: 10/30/21 07:10 10/30/21 07:10 [facility] Medical History Gastroesophageal reflux disease Ortiz's neuroma of both feet Social History household members: none Smoking Status: Never smoker alcohol intake: current Assessment & Plan Time Spent With Patient Critical Care time: I spent a total of [] minutes of critical care time on this patient's care today; this time is exclusive of procedural time.
[2021-10-31 15:00] VITALS: BP 110/72; PULSE 66; RESP 21; TEMP 36.9; O2SAT 98
--- NOTE | 2021-10-31 16:03 | CM.DANOTE ---
DCP Assessment: Patient is a 81 yr old male who was admitted for SBO. Cm met with patient at the bedside and explained role patient was alert and oriented x4. Patient currently lives alone here in [place] in a ground level home. Patients DPOA is his son William. patient states he is Independent at baseline with all ADLs and drives. Patients friend Lita will provide transportation home when he is medically stable for DC. Patient was up and ambulating in his room. patient was pleasant but asking to go home today. I: Medicare and AARP Plan: DC home with friend Maggie providing transportation home. No identified DC planning needs at this time Cm will follow to assist with any DC planning needs that may arise prior to DC. Sarita Cassidy RNsql data architect Discharge Planning/Care Management CM Discharge Assessment Start: 10/31/21 15:46 Freq: Status: Active Protocol: Document 10/31/21 15:46 HS (Rec: 10/31/21 16:03 HS [id number]) Discharge Planning Assessment Assigned Well Service Floorperson Sarita Cassidy RN Case Mananger DPOA/Assigned Designee Name Simon Thomas Contact Information [phone] Advance Directives? Yes: JOAO PACHECO for HC, HC Directive Advance Directives on File No History Provided By Patient,Medical Record Has Patient been admitted in last 30 No days? Prior Living Arrangements House Household Members none Type of transporation used prior to Drives own vehicle admit Independent with ADL's Yes Is patient alert and oriented? Yes Caregiver for Another No Barriers to Discharge No Discharge Plan Home Transportation Arrangement Friend- Maggie Cassidy- neighbor in personal vehichle Referrals Initiated None needed Whiteboard Updated in Patient Room with Yes name and ext. # of Well Service Floorperson Review Status In Process Next Review Type Continued Stay Review
--- NOTE | 2021-10-31 17:50 | P.DS_ITS ---
History of Present Illness History of Present Illness Date Patient Seen: 10/31/21 Time Patient Seen: 17:50 Chief complaint: pain in lower abd Narrative: Patient with history of abdominal surgery (appendix and hernia x2) and bowel obstruction presents to ED with acute abdominal pain and no passage of flatus since 6 am this morning.? Last BM was yesterday morning and was regular.? Usually moves his bowels each morning after coffee.? Otherwise feels generally ok denies recent illness. Discharge Providers Provider Date of admission: 10/30/21 09:45 Discharge Date: 10/31/21 Primary care physician: Vandana Jara MD Discharge provider: Estrellita Oviedo MD Summary Hospital Course Discharge Diagnosis: 1. Acute small bowel obstruction, resolved 2. Atrial fibrillation, paroxysmal, chronic 3. Hyperlipidemia, chronic 4. Malignant melanoma, chronic 5. Ortiz's nueroma, chronic Hospital Course: Uneventful. Patient was observed overnight, was able to advance his diet and achieve a large bowel movement in the hospital. He has had a normal diet throughout the day and has good bowel tones and is passing gas, no pain. On day of discharge he is afebrile with stable vital signs throughout. Time spent on Discharge and Coordination of post-hospital care: 35 minutes Status at Discharge Cognitive/behavioral status at discharge: at baseline, oriented Functional status at discharge: independent ambulation Overall status at discharge: patient is back to baseline Exam Vital Signs (past 8 hours): - 10/31/21 11:25 10/31/21 15:00 Temperature 97.9 F 98.5 F Pulse Rate 66 66 Respiratory Rate 20 21 Blood Pressure 98/66 110/72 Pulse Oximetry 96 98 Oxygen Delivery Method Room Air Oxygen Flow Rate 0 Narrative Exam Narrative: GENERAL: Alert and oriented, appearing stated age and in no acute distress. HEENT: Head normocephalic/atraumatic. Extraocular movements intact. LUNGS: Clear to ausculation bilaterally, no wheezes, rhonchi or rales. CV: Normal S1 and S2 with regular rate and rhythm, no audible murmurs, rubs or gallops. ABDOMEN: Soft, non-tender, non-distended, no organomegaly. Positive bowel sounds in all four quadrants. EXTREMITIES: No clubbing, cyanosis, or edema. NEURO: Cranial nerves II through XII grossly intact, no focal deficits. PSYCH: Alert and oriented x 3. SKIN: No concerning lesions. Objective Labs Result Diagrams: 10/30/21 07:10 10/30/21 07:10 FOR[facility]LY [facility] Medical History Gastroesophageal reflux disease Ortiz's neuroma of both feet Social History household members: none Smoking Status: Never smoker alcohol intake: current Discharge Plan Discharge Plan Patient Disposition: Home Discharge orders & Medications Prescriptions: Continued ascorbic acid (vitamin C) 1,000 mg PO QAM 0RF aspirin [Adult Aspirin Regimen] 81 mg tablet,delayed release (DR/EC) 162 mg PO DAILY 0RF Probiotic capsule 1 caplet PO QAM 0RF astaxanthin capsule 12 mg PO QAM 0RF Label Comments: patient is ok to not take this med while hospitalized Rx Instructions: supplement omega 6-mpk-dlw-fish oil [Fish Oil] 1,000 mg (120 mg-180 mg) Capsule 1 cap PO DAILY 0RF metoprolol succinate 25 mg tablet extended release 24 hr 12.5 mg PO DAILY 0RF Follow up/Referrals: Vandana Jara MD [Primary Care Provider] - Diet/Activity/Treatments Diet: Diet as Tolerated Skin/Wound/Dressing Care Report to your healthcare provider any signs of infection, such as:: chills, fever and increased pain Discharge Data Primary Care Provider: Vandana Jara Attending Provider: Adam Shrestha
== END 2021-10-31 19:11 | disposition home or self-care (01) ==
LOC: ED 09:30 → AC 09:46
PROVIDERS: Admitting Provider Family Medicine; Emergency Provider Emergency Medicine; PCP Family Medicine; Referring Provider Emergency Medicine; Visit Provider Family Medicine
DX: K56.609 Unspecified intestinal obstruction, unspecified as to partial versus complete obstruction (principal); I48.0 Paroxysmal atrial fibrillation; E78.5 Hyperlipidemia, unspecified; G57.63 Lesion of plantar nerve, bilateral lower limbs; Z20.822 Contact with and (suspected) exposure to COVID-19
CPT/HCPCS: 36415; 74177; 80053; 81003; 83690; 85025; 87635; 96374; 99284; C9803; G0378; A9270; J2405

== ENCOUNTER 2023-05-31 08:16 | Observation (INO) | payer MEDICARE, OTHER, SELFPAY ==
[2021-10-30 11:44] VITALS: BMI 23.0
[2023-05-31] VITALS (14 sets, daily range): BP systolic 101–151; BP diastolic 58–80; PULSE 61–81; RESP 13–24; TEMP 36.2–36.5; O2SAT 94–99; BMI 23.0; BMI 19.4
--- NOTE | 2023-05-31 08:32 | ED.ABDPAIN ---
HPI - Abdominal Pain General Chief Complaint: Abdominal Pain Stated Complaint: abd pain several days getting worse this am Time Seen by Provider: 05/31/23 08:25 History of Present Illness HPI narrative: Patient is a 83-year-old male with a history of small-bowel obstruction previously had appendectomy bilateral inguinal hernias he is had 2 prior bowel obstructions that resolved with supportive care presents today with periumbilical pain. He reports it has been there for about a week but only told his couple days ago. It is not getting any better. He denies any nausea or vomiting. He would a normal bowel movement yesterday he is passing gas. He says this does not feel like a bowel obstruction. He is no chest pain or palpitations his appetite has remained normal. He has not had any changes in urination. He is not had any fever. Related Data Home Medications Medication Instructions Recorded Confirmed ascorbic acid (vitamin C) 1,000 mg PO QAM 03/18/18 05/31/23 aspirin 81 mg tablet,delayed 162 mg PO DAILY 06/18/18 05/31/23 release (Adult Aspirin Regimen) Probiotic 1 caplet PO QAM 06/17/20 05/31/23 astaxanthin 12 mg PO QAM 06/17/20 05/31/23 omega 0-lzc-ezr-fish oil 1,000 mg 1 cap PO DAILY 06/17/20 05/31/23 (120 mg-180 mg) capsule (Fish Oil) metoprolol succinate 25 mg 12.5 mg PO DAILY 10/30/21 05/31/23 tablet,extended release 24 hr Allergies Allergy/AdvReac Type Severity Reaction Status Date / Time No Known Drug Allergies Allergy Verified 05/31/23 08:36 Patient History Medical History Ortiz's neuroma of both feet Gastroesophageal reflux disease Social History household members: none Smoking Status: Never smoker alcohol intake: current Smoking Status: Never smoker alcohol intake frequency: a few times a month Substance Use Type: does not use Exam Initial Vital Signs Initial Vital Signs: Vital Signs Temperature 97.7 F 05/31/23 08:20 Pulse Rate 75 05/31/23 08:20 Respiratory Rate 18 05/31/23 08:20 Blood Pressure 144/75 H 05/31/23 08:20 Pulse Oximetry 98 05/31/23 08:20 Oxygen Delivery Method Room Air 05/31/23 08:20 GENERAL: Alert well-appearing 83-year-old male and in no acute distress. HEENT: Head atraumatic,EOMI, pupils reactive, face symmetric, moist mucous membranes CARDIOVASCULAR: Regular rate and rhythm without murmurs, rubs or gallops. RESPIRATORY: Breath sounds equal bilaterally, no wheezes rales or rhonchi. ABDOMEN: Soft, nontender. Normoactive bowel sounds all 4 quadrants. No guarding or rebound. Negative Smith's sign mild periumbilical pain EXTREMITIES: Normal range of motion, no clubbing or edema. Neurovascularly intact NEUROLOGICAL: Alert and oriented x4.Normal gait and speech. Cranial nerves II through XII grossly intact. SKIN: Warm, dry, no laceration, no petechiae, no rashes or lesions. Course Orders Ordered: Enoxaparin Sodium (Enoxaparin 40 Mg/0.4 Ml Syringe) 40 mg SUBCUT DAILY [facility] Dextrose/Sodium Chloride (Dextrose 5%-0.45% Ns) 1,000 mls @ 100 mls/hr IV CONT DESHAWN Last Admin: 05/31/23 16:53 Dose: 100 mls/hr Documented By: BF Naloxone HCl (Naloxone 0.4 Mg/Ml Vial) 0.2 mg IV Q2MIN PRN PRN Reason: Opiate Reversal MDM - Abdominal Pain Lab Data 05/31/23 08:41 05/31/23 08:41 Labs: Lab Results 05/31/23 Range/Units 08:41 WBC 5.5 (4.5-11.0) X10^3/uL RBC 4.42 L (4.5-5.9) X10^6/uL Hgb 14.5 (13.5-17.5) g/dL Hct 42.3 (41-53) % MCV 95.7 (80-100) fL MCH 32.9 (26-34) PG MCHC 34.4 (30-36) % RDW 13.9 (11.6-14.8) % Plt Count 168 (150-400) X10^3/uL Neut % (Auto) 79.5 H (50-75) % Lymph % (Auto) 8.8 L (25-40) % [place] % (Auto) 10.3 (3-14) % Eos % (Auto) 0.9 L (2-4) % Baso % (Auto) 0.5 (0-2) % Neut # (Auto) 4400 (3351-3350) /uL Lymph # (Auto) 500 L (5101-0012) /uL [place] # (Auto) 600 (0-900) /uL Eos # (Auto) 100 (0-450) /uL Baso # (Auto) 0 (0-100) /uL Sodium 137 (137-145) mmol/L Potassium 4.6 (3.4-5.1) mmol/L Chloride 102 (98-107) mmol/L Carbon Dioxide 28 (22-32) mmol/L BUN 19 (9-20) mg/dL Creatinine 0.97 (0.66-1.25) mg/dL Estimated GFR > 60 (>60) mL/min BUN/Creatinine Ratio 19.6 (6-22) Glucose 107 (80-110) mg/dL Calcium 9.3 (8.4-10.2) mg/dL Total Bilirubin 0.8 (0.2-1.3) mg/dL AST 34 (17-59) IU/L ALT 24 (<50) IU/L Alkaline Phosphatase 63 (38-126) U/L Total Protein 6.7 (6.3-8.2) g/dL Albumin 4.1 (3.5-5.0) g/dL Globulin 2.6 (1.7-4.1) g/dL Albumin/Globulin Ratio 1.6 (1.0-2.8) Lipase 67 (23-300) U/L Point of care testing: Urine Dip Bedside Urine Glucose Negative Bedside Urine Bilirubin - Negative Bedside Urine Ketone - Negative Urine Specific [place] 1.010 Bedside Urine Occult Blood - Negative Bedside Urine pH 7.5 Bedside Urine Protein - Negative Bedside Urine Urobilinogen - Negative Bedside Urine Nitrite - Negative Bedside Urine Leukocytes - Negative Esterase Imaging Data CT scan - abdomen/pelvis: Radiologist's Impression: PROCEDURE: CT ABDOMEN PELVIS W CON INDICATIONS: periumbilical pain TECHNIQUE: After the administration of intravenous contrast, axial sections acquired from the lung bases to the pubic symphysis. Coronal and sagittal reformats were performed. For radiation dose reduction, the following was used: automated exposure control, adjustment of mA and/or kV according to patient size. COMPARISON: [facility], CT, CT ABDOMEN PELVIS W CON, 10/30/2021, 8:41. FINDINGS: Image quality: Excellent. Lung bases: Unremarkable. Heart: No significant findings. ABDOMEN: Liver: Unremarkable. Gallbladder: Unremarkable. Biliary ducts: Unremarkable. Pancreas: Atrophic. Spleen: Unremarkable. Adrenal Glands: Unremarkable. Kidneys and Ureters: Unremarkable. Stomach and Bowel: There is a moderate-sized hiatal hernia. The duodenum is decompressed. The proximal jejunum is decompressed. There is moderate dilatation of the midportion of the small bowel which is gas and fluid-filled. No wall thickening, pneumatosis, or pneumoperitoneum. The distal small bowel is decompressed. A transition point is likely present within the anterior pelvis (series 3/image 26 and series 2/image 24). Peritoneum: No abnormal intraperitoneal fluid. No free air. Ventral Wall: No hernias. Abdominal Nodes: No retroperitoneal or mesenteric adenopathy by size criteria. Vessels: Aorta and inferior vena cava are normal in size. PELVIS: Pelvic Organs: Unremarkable. Bladder: Unremarkable. Pelvic Nodes: No enlarged lymph nodes. Miscellaneous: No hernias are seen. Bones: Unremarkable. IMPRESSION: 1. Dilated, fluid-filled midportion of the small bowel suspicious for partial bowel obstruction. A transition point is likely present within the anterior pelvis. Closed loop obstruction cannot be excluded. Differential considerations include internal hernia. 2. No evidence for umbilical hernia on the current study. Dictated by: Bella Melchor M.D. on 05/31/2023 at 9:35 ECG Data Interpretation: Normal sinus rhythm rate 74 RI interval 198 QRS [address] changes MDM Narrative Medical decision making narrative: Patient 83-year-old male history of multiple abdominal surgeries previous partial and small bowel obstructions all which resolved with conservative treatment. Presents today with abdominal pain. CT confirms partial small-bowel obstruction with transition point. Abdomen is soft nontender he is no nausea or vomiting. He overall appears well blood work has been reviewed negative. Dr. Pineda updated on patient's symptoms and test results agrees to observation Discharge Plan Departure Patient Disposition: Admitted as Observation Clinical Impression: Partial bowel obstruction Admit Date/Time: 05/31/23 10:55 Admit Provider: Slade Pineda
[2023-05-31 08:48] LABS: Add Manual Diff / Slide Review NO; Basophils Absolute Auto 0 /uL (0-100); Basophils Percent Auto 0.5 % (0-2); Eosinophils Absolute Auto 100 /uL (0-450); Eosinophils Percent Auto 0.9 % (2-4); Hematocrit 42.3 % (41-53); Hemoglobin 14.5 g/dL (13.5-17.5); Lymphocytes Absolute Auto 500 /uL (1100-4500); Lymphocytes Percent Auto 8.8 % (25-40); Mean Corpuscular HGB Conc 34.4 % (30-36); Mean Corpuscular Hemoglobin 32.9 PG (26-34); Mean Corpuscular Volume 95.7 fL (80-100); Monocytes Absolute Auto 600 /uL (0-900); Monocytes Percent Auto 10.3 % (3-14); Neutrophils Absolute Auto 4400 /uL (1500-7000); Neutrophils Percent Auto 79.5 % (50-75); Platelet Count 168 X10^3/uL (150-400); Red Blood Cell Count 4.42 X10^6/uL (4.5-5.9); Red Cell Distribution Width 13.9 % (11.6-14.8); White Blood Cell Count 5.5 X10^3/uL (4.5-11.0)
[2023-05-31 09:01] LABS: Alanine Aminotransferase 24 IU/L (<50); Albumin 4.1 g/dL (3.5-5.0); Albumin Globulin Ratio 1.6 (1.0-2.8); Alkaline Phosphatase 63 U/L (38-126); Aspartate Aminotransferase 34 IU/L (17-59); BUN Creatinine Ratio 19.6 (6-22); Bilirubin Total 0.8 mg/dL (0.2-1.3); Blood Urea Nitrogen 19 mg/dL (9-20); Calcium 9.3 mg/dL (8.4-10.2); Carbon Dioxide 28 mmol/L (22-32); Chloride 102 mmol/L (98-107); Estimated Glomerular Filt Rate > 60 mL/min (>60); Globulin 2.6 g/dL (1.7-4.1); Glucose 107 mg/dL (80-110); HEMOLYSIS < 15 (0-50); Lipase 67 U/L (23-300); Potassium 4.6 mmol/L (3.4-5.1); Sodium 137 mmol/L (137-145); Total Protein 6.7 g/dL (6.3-8.2)
--- NOTE | 2023-05-31 12:57 | PC.NURSE ---
report given to Daiana BRICENO on Acute.
--- NOTE | 2023-05-31 15:01 | DI.RAD.S_ITS ---
PROCEDURE: XR GASTROGRAFIN CHALLENGE COMPARISON: [facility], CT, CT ABDOMEN PELVIS W CON, 05/31/2023, 9:09. INDICATIONS: sbo FINDINGS: Oral contrast is present in small intestine and and colon. Majority of the contrast is in the colon. There is contrast in the distal colon. Small bowel loops are distended measuring up 4 cm. IMPRESSION: Majority of the oral contrast has reached the distal colon. Small bowel loops are dilated. The transitional point cannot be seen. The findings are suggestive of partial small bowel obstruction. Dictated by: Zaria Mera M.D. on 05/31/2023 at 20:54 Approved by: Zaria Mera M.D. on 05/31/2023 at 20:57
[2023-05-31] MEDS: DEXTROSE 5%-0.45% NS 1,000 ML 100 ML IV (16:53)
--- NOTE | 2023-05-31 19:19 | PM.HP.1 ---
History of Present Illness History of Present Illness Date Patient Seen: 05/31/23 Time Patient Seen: 19:19 Chief complaint: abd pain several days getting worse this am Narrative: 83-year-old man history of abdominal surgery and prior small bowel obstruction who presents with abdominal pain for several days. Becoming progressively worse with associated distention and no bowel movement for the past day. Emergency Department evaluation demonstrates afebrile, no leukocytosis and CT abdomen pelvis demonstrates a partial small bowel obstruction. He is brought in for observation. Gastrografin study was performed this afternoon which demonstrates resolution of his bowel obstruction he is had large bowel movement. FORMERLY [facility] Medical History Ortiz's neuroma of both feet Gastroesophageal reflux disease Social History household members: none Smoking Status: Never smoker alcohol intake: current Meds Home Medications and Allergies Home Medications Medication Instructions Recorded Confirmed Type ascorbic acid (vitamin C) 1,000 mg PO QAM 03/18/18 05/31/23 History aspirin 81 mg tablet,delayed 162 mg PO DAILY 06/18/18 05/31/23 History release (Adult Aspirin Regimen) Probiotic 1 caplet PO QAM 06/17/20 05/31/23 History astaxanthin 12 mg PO QAM 06/17/20 05/31/23 History omega 6-vgh-utk-fish oil 1,000 mg 1 cap PO DAILY 06/17/20 05/31/23 History (120 mg-180 mg) capsule (Fish Oil) metoprolol succinate 25 mg 12.5 mg PO DAILY 10/30/21 05/31/23 History tablet,extended release 24 hr Allergies Allergy/AdvReac Type Severity Reaction Status Date / Time No Known Drug Allergies Allergy Verified 05/31/23 08:36 Exam Vital Signs (past 8 hours): - 05/31/23 11:30 05/31/23 11:30 05/31/23 13:30 Temperature 97.3 F L Pulse Rate 70 61 Respiratory Rate 16 18 Blood Pressure 111/71 109/58 L Pulse Oximetry 95 99 Oxygen Delivery Method Oxygen Flow Rate 0 05/31/23 15:45 05/31/23 16:01 Temperature 97.1 F L Pulse Rate 81 Respiratory Rate 18 Blood Pressure 108/63 Pulse Oximetry 99 99 Oxygen Delivery Method Room Air Oxygen Flow Rate 0 Oxygen Delivery Method Room Air Oxygen Flow Rate 0 Narrative Exam Narrative: General elderly man alert oriented no acute distress Chest nonlabored respiration Abdomen soft minimally tender Extremities were well perfused Objective Labs 05/31/23 08:41 05/31/23 08:41 Labs: Laboratory Results - last 24 hr 05/31/23 08:41 WBC 5.5 RBC 4.42 L Hgb 14.5 Hct 42.3 MCV 95.7 MCH 32.9 MCHC 34.4 RDW 13.9 Plt Count 168 Neut % (Auto) 79.5 H Lymph % (Auto) 8.8 L [place] % (Auto) 10.3 Eos % (Auto) 0.9 L Baso % (Auto) 0.5 Neut # (Auto) 4400 Lymph # (Auto) 500 L [place] # (Auto) 600 Eos # (Auto) 100 Baso # (Auto) 0 Sodium 137 Potassium 4.6 Chloride 102 Carbon Dioxide 28 BUN 19 Creatinine 0.97 Estimated GFR > 60 BUN/Creatinine Ratio 19.6 Glucose 107 Calcium 9.3 Total Bilirubin 0.8 AST 34 ALT 24 Alkaline Phosphatase 63 Total Protein 6.7 Albumin 4.1 Globulin 2.6 Albumin/Globulin Ratio 1.6 Lipase 67 Assessment & Plan Assessment and plan (1) SBO (small bowel obstruction): Status: Acute Assessment & Plan narrative: 83-year-old man history of abdominal surgery admitted for a small-bowel obstruction. Obstruction has resolved with Gastrografin challenge. -advance diet as tolerated -anticipate discharge home tomorrow -DC IV fluids Quality VTE Deep Vein Thrombosis/Pulmonary Embolism Present on Admission: No
[2023-06-01] VITALS: O2SAT 99
[2023-06-01 04:00] VITALS: O2SAT 99
[2023-06-01 04:42] VITALS: BP 101/73; PULSE 76; RESP 17; TEMP 36.4; O2SAT 93
[2023-06-01 08:00] VITALS: O2SAT 98
[2023-06-01 08:56] VITALS: BP 122/66; PULSE 98; RESP 18; TEMP 36.7; O2SAT 99
--- NOTE | 2023-06-01 09:52 | PC.NURSE ---
Addendum entered by Gera Gagnon R.N. 06/01/23 10:52: D/C orders rec'd and instructions given. Pt readying for D/c. Jennifer will escort him via w/c to his ride. Original Note: Pt up and active in the room offers no overt c/o and is asking about going home. Dr. Pineda in to see Pt at 009:50 and will write orders.
--- NOTE | 2023-06-01 11:05 | CM.DANOTE ---
Reviewed chart with existing information, and patient discussed in multidisciplinary rounds this morning. Met with patient and introduced to care coordination and discharge planning. They agree to assessment. Pt is a 77 year old admitted for planned right knee arthroplasty. States she looks forward to going home with support from her new Drake (states they met online on [employer]). States prior OP PT at [facility] in [place] and will plan to return there for PT if indicated at [place]. PCP: Gissel Ramesh DME: Own [employer] Payer: Medicare/ Barriers: None foreseen, pending PT eval. Betsey Rivera RN, CM Discharge Planning/Care Management CM Discharge Assessment Start: 06/01/23 11:02 Freq: Status: Active Protocol: Document 06/01/23 11:02 DIVINA (Rec: 06/01/23 11:05 BQ [id number]) Discharge Planning Assessment Assigned Line Mechanic Betsey Rivera RN, CM Advance Directives? Yes: POLST, DPOA for HC, HC Directive Advance Directives on File No History Provided By Patient,Medical Record Has Patient been admitted in last 30 No days? Prior Living Arrangements House Household Members spouse,none Type of transporation used prior to Drives own vehicle admit Independent with ADL's Yes Is patient alert and oriented? Yes Caregiver for Another No DME Already Rented / Owned FWW / Walker Patient/Family Preference OP PT Therapy Comment Prior OP PT at [facility] PT in [place] Barriers to Discharge No Comment None foreseen at this time, OOB to chair now Discharge Plan Home Transportation Arrangement [place] will be stage driver Referrals Initiated None needed Whiteboard Updated in Patient Room with Yes name and ext. # of Line Mechanic Review Status In Process Next Review Type Continued Stay Review
== END 2023-06-01 11:05 | disposition home or self-care (01) ==
LOC: ED 10:47 → AC 10:55
PROVIDERS: Admitting Provider Surgery; Emergency Provider Emergency Medicine; PCP Family Medicine; Visit Provider Surgery
DX: K56.609 Unspecified intestinal obstruction, unspecified as to partial versus complete obstruction (principal)
CPT/HCPCS: 36415; 74018; 74177; 80053; 81003; 83690; 85025; 93005; 99232; 99284; G0378

== ENCOUNTER → 2024-10-02 11:28 | Outpatient (CLI) | payer MEDICARE, OTHER, SELFPAY ==
[2023-05-31 13:01] VITALS: BMI 19.4
--- NOTE | 2024-10-02 11:31 | DI.RAD.S_ITS ---
PROCEDURE: XR SHOULDER LT MIN 2V INDICATIONS: Adhesive capsulitis of left shoulder TECHNIQUE: 3 views of the shoulder were acquired. COMPARISON: None. FINDINGS: Bones: No fractures or dislocations. The humeral head is mildly high-riding and there is glenohumeral joint space narrowing with marginal osteophytosis. Moderate hypertrophic acromioclavicular arthropathy and joint space narrowing noted. No suspicious bony lesions. Visualized ribs appear intact. Soft tissues: No suspicious soft tissue calcifications. IMPRESSION: Degenerative change without evidence of acute osseous abnormality. Dictated by: Ha Downey M.D. on 10/03/2024 at 10:43 Approved by: Ha Downey M.D. on 10/03/2024 at 10:44
--- NOTE | 2024-10-02 11:31 | DI.RAD.S_ITS ---
PROCEDURE: XR SHOULDER RT MIN 2V INDICATIONS: Adhesive capsulitis of right shoulder TECHNIQUE: 3 views of the shoulder were acquired. COMPARISON: None. FINDINGS: Bones: No fractures or dislocations. The humeral head is moderately high-riding. There is glenohumeral joint space narrowing with marginal osteophytosis. Moderate hypertrophic acromioclavicular arthropathy and joint space narrowing noted. No suspicious bony lesions. Visualized ribs appear intact. Soft tissues: No suspicious soft tissue calcifications. IMPRESSION: Degenerative change without evidence of acute osseous abnormality. Dictated by: Ha Downey M.D. on 10/03/2024 at 10:44 Approved by: Ha Downey M.D. on 10/03/2024 at 10:45
== END ==
LOC: RAD 11:29
PROVIDERS: PCP Family Medicine; Referring Provider Family Medicine; Visit Provider Family Medicine
DX: M75.01 Adhesive capsulitis of right shoulder (principal); M75.02 Adhesive capsulitis of left shoulder
CPT/HCPCS: 73030

== ENCOUNTER → 2024-11-26 08:29 | Outpatient (CLI) | payer MEDICARE, OTHER, SELFPAY ==
[2023-05-31 13:01] VITALS: BMI 19.4
--- NOTE | 2024-11-26 08:31 | DI.MRI.S_ITS ---
PROCEDURE: MR SHOULDER RT WO CON INDICATIONS: BILATERAL SHOULDER PAIN TECHNIQUE: Noncontrast oblique coronal T2 fast spin echo with fat saturation, oblique sagittal T1 spin echo and T2 fast spin echo with fat saturation, axial T1 spin echo and T2 fast spin echo with fat saturation through the shoulder. COMPARISON: [facility], CR, XR SHOULDER RT MIN 2V, 10/02/2024, 11:30. FINDINGS: Image quality: Excellent. Rotator cuff: In the supraspinatus, there is focal, low-grade interstitial tear at the mid footprint (8:9). There is low-grade articular sided tear at the critical zone of the posterior supraspinatus (08:10). No tear of the infraspinatus. The teres minor is unremarkable. The subscapularis is unremarkable. No muscle edema or fatty atrophy. Bones and bursae: Moderate degenerative changes of the acromioclavicular joint. Type 2 acromion. No os acromiale. Moderate subacromial/subdeltoid bursitis. Mild subchondral cystic changes in the anterior greater tuberosity, and mild subchondral cystic changes and marrow edema in the posterior greater tuberosity, reactive. No acute fracture. No focal chondral defect of the glenohumeral articulation. Capsule and soft tissues: Superior labral tear, extending anteriorly to the anterior labrum, and posteriorly to the posterior labrum. No paralabral cyst. Mild tenosynovitis of the extra-articular biceps tendon. The extra-articular biceps tendon is intact. Mild tendinosis of the intra-articular biceps tendon. Small glenohumeral effusion. Mild subcoracoid bursitis. No intra-articular body. IMPRESSION: 1. Moderate degenerative changes of the acromioclavicular joint. 2. Multifocal low-grade tear of the supraspinatus. 3. Labral tear. 4. Mild tenosynovitis of the extra-articular biceps tendon. Dictated by: Celi Ponce M.D. on 11/26/2024 at 13:50 Approved by: Celi Ponce M.D. on 11/26/2024 at 14:01
--- NOTE | 2024-11-26 08:31 | DI.MRI.S_ITS ---
PROCEDURE: MR SHOULDER LT WO CON INDICATIONS: BILATERAL SHOULDER PAIN TECHNIQUE: Noncontrast oblique coronal T2 fast spin echo with fat saturation, oblique sagittal T1 spin echo and T2 fast spin echo with fat saturation, axial T1 spin echo and T2 fast spin echo with fat saturation through the shoulder. COMPARISON: [facility], CR, XR SHOULDER LT MIN 2V, 10/02/2024, 11:30. [facility], MR, MR SHOULDER RT WO CON, 11/26/2024, 8:54. FINDINGS: Image quality: Somewhat limited evaluation given patient motion.. Rotator cuff: Mild tendinosis of the supraspinatus and infraspinatus, without tear. The teres minor is unremarkable. Mild tendinosis of the subscapularis, with low-grade articular sided tear. No muscle edema or fatty atrophy. Bones and bursae: Moderate degenerative changes of the acromioclavicular joint. Type 1 acromion. No os acromiale. Large subacromial/subdeltoid bursitis. There is mild flattening of the posterior superior glenoid, with mild marrow edema, concerning for subacute to chronic Hill-Sachs fracture. Mild subchondral cystic changes at the posterior greater tuberosity, reactive. Mild chondral irregularity of the glenoid and mild chondral thinning of the superior humeral head. Small area of high-grade chondral loss in the medial humeral head (8:9). Capsule and soft tissues: Superior labral tear, extending anteriorly to the anterior superior labrum. No paralabral cyst. Mild tenosynovitis of the extra-articular biceps tendon. Low-grade interstitial tear of the intra-articular biceps tendon. Moderate glenohumeral effusion. 1.0 cm loose body within the axillary recess. IMPRESSION: 1. Moderate degenerative changes of the acromioclavicular joint. 2. Findings concerning for subacute to chronic Hill-Sachs fracture. Recommend correlation with patient's history. 3. Mild chondrosis of the glenohumeral joint. 4. Low-grade tear of the subscapularis. 5. Labral tear. 6. Mild tenosynovitis of the extra-articular biceps tendon. Low-grade interstitial tear of the intra-articular biceps tendon. 7. Moderate glenohumeral effusion. 1.0 cm loose body in the axillary recess. Dictated by: Celi Ponce M.D. on 11/26/2024 at 14:14 Approved by: Celi Ponce M.D. on 11/26/2024 at 14:28
== END ==
PROVIDERS: PCP Family Medicine; Referring Provider Orthopaedic Surgery; Visit Provider Orthopaedic Surgery
DX: M75.111 Incomplete rotator cuff tear or rupture of right shoulder, not specified as traumatic (principal); S43.491A Other sprain of right shoulder joint, initial encounter; M65.921 Unspecified synovitis and tenosynovitis, right upper arm; M25.511 Pain in right shoulder; M75.112 Incomplete rotator cuff tear or rupture of left shoulder, not specified as traumatic; S43.492A Other sprain of left shoulder joint, initial encounter; M25.512 Pain in left shoulder; M94.212 Chondromalacia, left shoulder; S46.212A Strain of muscle, fascia and tendon of other parts of biceps, left arm, initial encounter; M65.922 Unspecified synovitis and tenosynovitis, left upper arm; M25.412 Effusion, left shoulder
CPT/HCPCS: 73221

== ENCOUNTER → 2024-12-04 13:49 | Outpatient (CLI) | payer MEDICARE, OTHER, SELFPAY ==
[2023-05-31 13:01] VITALS: BMI 19.4
== END ==
PROVIDERS: PCP Family Medicine; Referring Provider Family Medicine; Visit Provider Family Medicine
DX: R10.13 Epigastric pain (principal); D64.9 Anemia, unspecified
CPT/HCPCS: 82274; 87338